=== PATIENT | female | born 1995 | race Caucasian/White ===

== ENCOUNTER 2018-04-22 13:05 | Emergency (ER) | payer OTHER ==
[2018-04-22 14:06] LABS: #Lymphocytes 1.3 thou/uL (1.20-3.40); #Monocytes 0.6 thou/uL (0.11-0.59); #Neutrophils 10.5 thou/uL (1.40-6.50); %Basophils 0.1 % (0.0-1.0); %Eosinophils 0.1 % (0.0-10.0); %Lymphocytes 10.4 % (28.0-48.0); %Monocytes 4.6 % (0.0-4.0); %Neutrophils 84.7 % (31.0-61.0); Hemoglobin 12.2 g/dL (12.0-16.0); Mean Corpuscular HGB CONC 34.3 g/dL (32.0-36.0); Mean Corpuscular Hemoglobin 31.5 pg (25.0-35.0); Mean Corpuscular Volume 91.7 fL (78.0-98.0); Mean Platelet Volume 7.1 fL (7.4-10.4); Platelet Count 216 thou/uL (130-400); RBC Distribution Width 12.3 % (11.5-14.5); Red Blood Cell (RBC) Count 3.86 mill/uL (4.00-5.20); White Blood Cell (WBC) Count 12.3 thou/uL (4.8-10.8)
[2018-04-22 14:40] LABS: ALT (SGPT) 8 U/L (8-55); AST (SGOT) 13 U/L (5-34); Albumin 3.5 g/dL (3.5-5.0); Alkaline Phosphatase 79 U/L (40-150); Anion Gap 11 mmol/L (10-20); BUN (Urea Nitrogen) 8 mg/dL (7.0-18.7); Bilirubin, Total 0.2 mg/dL (0.2-1.2); Calc. Creatinine Clearance 0 mL/min (70-130); Calcium 9.2 mg/dL (7.8-10.44); Carbon Dioxide 21 mmol/L (22-29); Chloride 106 mmol/L (98-107); Estimated GFR-MDRD Greater than 90; Globulin 3.1 g/dL (2.4-3.5); Glucose 73 mg/dL (70-105); Potassium 3.8 mmol/L (3.5-5.1); Protein, Total 6.6 g/dL (6.0-8.3); Sodium 134 mmol/L (136-145)
[2018-04-22] MEDS ORDERED: Lidocaine 2% Jelly 5 ML TUBE ONE (15:58)
[2018-04-22] MEDS ORDERED: Acetaminophen 325 MG TAB ONE (16:25)
== END 2018-04-22 16:47 | disposition home or self-care (01) ==
LOC: ERS 13:05
DX: O99.612 Diseases of the digestive system complicating pregnancy, second trimester (principal); K60.2 Anal fissure, unspecified; Z79.899 Other long term (current) drug therapy; Z3A.18 18 weeks gestation of pregnancy
CPT/HCPCS: 36415; 80053; 85025; 99283

== ENCOUNTER 2018-05-15 20:09 | Day surgery (SDC) | payer OTHER ==
[2018-05-15 20:32] VITALS: BMI 25.2
[2018-05-15 20:33] VITALS: BP 106/57; TEMP 98.5
--- NOTE | 2018-05-15 20:58 | PDOC.LDHP ---
Labor and Delivery H&P Chief complaint: other (hernia pain) HPI: 22 y/o at 22w0d presents with umbilical hernia pain. Patient sees a Dr. Hope in [place]. Umbilical hernia has been present for 9 years and is only painful during . Noticed it was "poking out more" and more painful today. Denies VB, LOF, ctx, or decreased FM. Complains of constipation that is relieved with Milk of Magnesia. ROS neg for HEENT, cv, pulm, gi, gu, neuro, psych, skin, musculoskeletal, or constitutional symptoms other than mentioned above. OB History Details: 1 prior term LTCS Current complications: none Past Medical History: None Current medications: other (Diclegis) Previous surgical history: low tranverse CS, appendectomy Allergies/Adverse Reactions: Allergies Allergy/AdvReac Type Severity Reaction Status Date / Time No Known Allergies Allergy Verified 05/15/18 20:38 Social history: none - Physical Exam Vital signs reviewed and normal: yes General: NAD, resting Lungs: nonlabored breathing Abdomen: gravid (reducible hernia superior to umbilicus. No e/o incarceration.) Extremeties: no edema FHT: category 1 (140s) - Assessment 22 y/o at 22w0d with reducible umbilical hernia. No e/o incarceration. status reassuring with normal FHTs. - Plan -: D/c home with precautions. Advised to keep all appointments. Comfort measures discussed.
== END 2018-05-15 21:05 | disposition home health service (06) ==
LOC: L&D/OP 20:09
PROVIDERS: ATTEND Obstetrics & Gynecology
DX: O99.612 Diseases of the digestive system complicating pregnancy, second trimester (principal); K42.9 Umbilical hernia without obstruction or gangrene; Z3A.22 22 weeks gestation of pregnancy; Z98.890 Other specified postprocedural states
CPT/HCPCS: 99282

== ENCOUNTER 2018-06-13 10:44 | Day surgery (SDC) | payer OTHER ==
[2018-06-13 11:37] VITALS: BMI 26.9
[2018-06-13 11:54] LABS: Bilirubin Negative (Negative); Blood, Urine Negative (Negative); Clarity CLEAR (Clear); Glucose, Urine (Dipstick) Negative (Negative); Leukocyte Negative (Negative); Nitrite Negative (Negative); Protein, Urine (Dipstick) Negative (Neg-Trace); Specific Gravity, Urine 1.023 (1.002-1.036)
[2018-06-13 12:09] LABS: #Eosinphils 0.1 thou/uL (0.0-0.7); #Lymphocytes 1.9 thou/uL (1.20-3.40); #Monocytes 0.6 thou/uL (0.11-0.59); #Neutrophils 9.6 thou/uL (1.40-6.50); %Basophils 0.2 % (0.0-1.0); %Eosinophils 0.5 % (0.0-10.0); %Lymphocytes 15.9 % (28.0-48.0); %Monocytes 4.8 % (0.0-4.0); %Neutrophils 78.7 % (31.0-61.0); Hemoglobin 10.7 g/dL (12.0-16.0); Mean Corpuscular HGB CONC 35.7 g/dL (32.0-36.0); Mean Corpuscular Hemoglobin 32.7 pg (25.0-35.0); Mean Corpuscular Volume 91.6 fL (78.0-98.0); Mean Platelet Volume 7.3 fL (7.4-10.4); Platelet Count 205 thou/uL (130-400); RBC Distribution Width 11.9 % (11.5-14.5); Red Blood Cell (RBC) Count 3.26 mill/uL (4.00-5.20); White Blood Cell (WBC) Count 12.2 thou/uL (4.8-10.8)
[2018-06-13 12:33] LABS: ALT (SGPT) 8 U/L (8-55); AST (SGOT) 12 U/L (5-34); Albumin 3.3 g/dL (3.5-5.0); Alkaline Phosphatase 89 U/L (40-150); Anion Gap 10 mmol/L (10-20); BUN (Urea Nitrogen) 9 mg/dL (7.0-18.7); Bilirubin, Total 0.2 mg/dL (0.2-1.2); Calc. Creatinine Clearance 171 mL/min (70-130); Calcium 8.6 mg/dL (7.8-10.44); Carbon Dioxide 19 mmol/L (22-29); Chloride 109 mmol/L (98-107); Estimated GFR-MDRD Greater than 90; Globulin 2.9 g/dL (2.4-3.5); Glucose 76 mg/dL (70-105); Potassium 3.7 mmol/L (3.5-5.1); Protein, Total 6.2 g/dL (6.0-8.3); Sodium 134 mmol/L (136-145)
--- NOTE | 2018-06-13 13:51 | SS ---
DATE OF EVALUATION: 06/13/2018 EVALUATING PHYSICIAN: Jb Rodriguez M.D. CHIEF COMPLAINT: Upper abdominal pain, lower back pain. HISTORY OF PRESENT ILLNESS: Ms. Kim is a 22-year-old white G2, P1-0-0-1 with an estimated date of c onfinement of 09/18/2018 who presents complaining of a 24-48 hour history of upper abdominal pain and lower back pain which she states is worse on the right than on the left. She states that she vomite d last evening x1 and she thinks there might have been blood in it. She denies fever, chills, or jenny nge in bowel or bladder habits. Her care has been in [place], [place]. She is currently t raveling with her boyfriend. PAST OBSTETRICAL HISTORY: Previous at term for what sounds like distress. PAST MEDICAL HISTORY: Unremarkable. PAST SURGICAL HISTORY: and appendectomy. MEDICATIONS: vitamins and Diclegis. ALLERGIES: No known allergies. SOCIAL HISTORY: Denies tobacco, alcohol, or drug use. FAMILY HISTORY: Unremarkable. REVIEW OF SYSTEMS: Denies fever, chills, or dysuria. PHYSICAL EXAMINATION: VITAL SIGNS: Stable. She is afebrile. GENERAL: She is well-appearing and in no distress. ABDOMEN: Shows no guarding or rebound. She has a gravid uterus and it is nontender. heart rate tracing is stable and reassuring. There are no decelerations. No uterine activity is seen. LABORATORY DATA: White count 12.2, hemoglobin and hematocrit 10.7 and 29.9, platelet count 205. Clara dianne shows a sodium of 134, potassium 3.7, creatinine 0.6, glucose 76, total bilirubin 0.2, AST 12, ALT 8, alkaline phosphatase 89. Urinalysis is yellow and clear, specific gravity of 1.023 with nega tive protein, negative glucose, negative ketones, negative blood, negative nitrites and negative bili rodarte, and negative leukocyte esterase. ASSESSMENT: 1. 26 and 1/7 week intrauterine . 2. No evidence of labor or urinary tract infection. 3. Suspect reflux. PLAN: At this time, the patient will be discharged home. I have suggested that she use Pepcid nkechi BONILLAh she can obtain over the counter and take 2 tablets at bedtime. She was also cautioned regarding spicy foods and other foods that she may not be able to tolerate. She voiced understanding of her d ischarge instructions and states that she has a visit with her provider in [place].
== END 2018-06-13 12:59 | disposition home or self-care (01) ==
LOC: L&D/OP 10:44
PROVIDERS: ATTEND Obstetrics & Gynecology
DX: O99.89 Other specified diseases and conditions complicating pregnancy, childbirth and the puerperium (principal); R10.9 Unspecified abdominal pain; M54.5 Low back pain; Z3A.26 26 weeks gestation of pregnancy
CPT/HCPCS: 36415; 80053; 81003; 85025; 99283

== ENCOUNTER 2018-07-09 06:15 | Day surgery (SDC) | payer OTHER | END 2018-07-09 08:08 | disposition home or self-care (01) | LOC: L&D/OP 06:15 | PROVIDERS: ATTEND Obstetrics & Gynecology | DX: O99.89 Other specified diseases and conditions complicating pregnancy, childbirth and the puerperium (principal); M79.1 Myalgia; M54.5 Low back pain; Z79.899 Other long term (current) drug therapy; Z3A.29 29 weeks gestation of pregnancy | CPT/HCPCS: 99282 ==

== ENCOUNTER 2018-07-29 12:44 | Inpatient (IN) | payer OTHER ==
[2018-07-29 13:22] VITALS: BMI 29.2
[2018-07-29 13:54] LABS: Bilirubin Small (Negative); Blood, Urine Negative (Negative); Clarity CLEAR (Clear); Glucose, Urine (Dipstick) Negative (Negative); Leukocyte Small (Negative); Nitrite Negative (Negative); Protein, Urine (Dipstick) 30 mg/dL (Neg-Trace); Specific Gravity, Urine 1.023 (1.002-1.036); pH, Urine 6.5 (5.0-9.0)
[2018-07-29 13:56] LABS: Bacteria/HPF None Seen HPF (None Seen); Hyaline Casts/LPF 7-10 HYALINE CAST LPF (0-3 Hyaline); Pathc Cast-AUWi Flag 1.88 (0-2.49); RBC/HPF 0-3 HPF (0-3)
[2018-07-29 13:58] LABS: Renal Epithelial None Seen HPF (0-3); Transitional Epithelial 0-3 HPF (0-3)
[2018-07-29 14:00] LABS: Hemoglobin 9.7 g/dL (12.0-16.0); Mean Corpuscular HGB CONC 33.6 g/dL (32.0-36.0); Mean Corpuscular Hemoglobin 29.9 pg (25.0-35.0); Mean Corpuscular Volume 88.8 fL (78.0-98.0); Mean Platelet Volume 7.7 fL (7.4-10.4); Platelet Count 292 thou/uL (130-400); RBC Distribution Width 12.4 % (11.5-14.5); Red Blood Cell (RBC) Count 3.24 mill/uL (4.00-5.20); White Blood Cell (WBC) Count 14.4 thou/uL (4.8-10.8)
[2018-07-29 14:17] LABS: FFN Internal QC Analyzer PASS (PASS); FFN Internal QC Cassette PASS (PASS); Fetal Fibronectin Negative (Negative)
[2018-07-29 14:39] LABS: Syphilis Antibody Nonreactive (Nonreactive); Syphilis Antibody Index 0.04 S/CO (<1.00 Non-Reactive)
[2018-07-29 14:41] LABS: HBSAB Concentration 2.87 mIU/mL; HBSAg Index 0.16 S/CO (0-0.99); HIV (1/2) Antibody/Antigen Non-Reactive (NonReactive); HIV 1/2 INDEX 0.18 S/CO (<1.00); Hep B Core Total Ab Non-Reactive (NonReactive); Hep B Core Total Index 0.36 S/CO (0-0.79); Hep B Surf AB Non-Reactive (NonReactive); Hep B Surf Ag Non-Reactive S/CO (NonReactive)
[2018-07-29] MEDS ORDERED: HYDROcodone/Acetaminophen 5/325 mg Tablet PO PRN ×2 (16:00)
[2018-07-29] MEDS ORDERED: Ondansetron ODT 4 MG TAB PO PRN (16:00)
[2018-07-29] MEDS ORDERED: Lactated Ringer's 500 ML IV SCH (16:00)
[2018-07-29] MEDS ORDERED: Zolpidem Tartrate 5 MG TAB PO PRN (16:00)
[2018-07-29] MEDS ORDERED: Ondansetron HCl/PF 4 MG/2 ML Vial IVP PRN (16:00)
[2018-07-29] MEDS ORDERED: Betamet Acet/Betamet Na Ph 30 MG/5 ML VIAL ONE (16:02)
[2018-07-29] MEDS: Betamet Acet/Betamet Na Ph 30 MG/5 ML VIAL IM SCH (16:05)
[2018-07-29] MEDS: Lactated Ringer's 1,000 ML IV SCH (16:18)
[2018-07-29 16:41] LABS: ALT (SGPT) 11 U/L (8-55); AST (SGOT) 19 U/L (5-34); Albumin 3.7 g/dL (3.5-5.0); Alkaline Phosphatase 140 U/L (40-150); Anion Gap 10 mmol/L (10-20); BUN (Urea Nitrogen) 10 mg/dL (7.0-18.7); Bilirubin, Total 0.4 mg/dL (0.2-1.2); Calc. Creatinine Clearance 163 mL/min (70-130); Calcium 9.3 mg/dL (7.8-10.44); Carbon Dioxide 25 mmol/L (22-29); Chloride 105 mmol/L (98-107); Estimated GFR-MDRD Greater than 90; Globulin 3.1 g/dL (2.4-3.5); Glucose 83 mg/dL (70-105); Protein, Total 6.8 g/dL (6.0-8.3); Sodium 136 mmol/L (136-145)
--- NOTE | 2018-07-29 18:00 | HP ---
DATE OF ADMISSION: 07/29/2018 REASON FOR ADMISSION: Thirty two weeks with lower back pain, cervical dilatation and possible preter m labor. HISTORY OF PRESENT ILLNESS: Ms. Kim is a 22-year-old 2, para 1 at 32 weeks by stated DILCIA of 09/21. She has had limited antepartum care with [facility] in [place]. She has presented to the Lab or and Delivery here 4 times during her with various complaints. She is complaining of low er back pain. Urinalysis revealed some bilirubin and some concentration. Otherwise, initial lab wor k was unremarkable. Of note, the patient on exam, however, had a cervix that was a good 1 cm and 75% effaced, cephalic with adequate fluid. Considering the patient's unstable psychosocial situat ion as evidenced by her lack of compliance with OB visits as well as some apparent conflict between h er and her significant other, decision was made to admit the patient for IV fluids as well as antenat al corticosteroids. [facility] HISTORY: x1 in [place], [place]. The patient was told her pelvis was misaligned and to o small and she need a repeat C-sections. PAST MEDICAL HISTORY: None. PAST SURGICAL HISTORY: and appendectomy. MEDICATIONS: vitamins. ALLERGIES: Denies. SOCIAL HISTORY: Denies tobacco, alcohol or IV drug use. FAMILY HISTORY: Noncontributory. REVIEW OF SYSTEMS: Noncontributory. PHYSICAL EXAMINATION: GENERAL: White female. VITAL SIGNS: Today, blood pressure is 118/72, pulse 85, respirations 18, temperature 98.6. HEENT: Within normal limits. LUNGS: Clear to auscultation bilaterally. HEART: Regular rhythm. ABDOMEN: Soft and nontender. Fundal height of 31 cm. FHTs 130s to 140s. No palpable contractions noted. PELVIC: Vulva without lesions. Vagina without discharge. Cervical exam is noted in the HPI. EXTREMITIES: Without clubbing, cyanosis or edema. HEART RATE TRACING: heart rate tracing is category 1 with no evidence of anything other than maybe some mild uterine irritability. No regular contractions. LABORATORY DATA: White count of 14.4, hematocrit of 29%. Urinalysis is somewhat concentrated with 3 0 protein, 15 ketones, small bilirubin and small leukocyte esterase. Micro is really unremarkable. The patient is hepatitis B immunized. fibronectin was negative. IMPRESSION: Possible early labor. PLAN: Admission, IV fluids, further laboratory evaluation, rate of growth ultrasound, tyler icosteroids x2 and we will obtain the patient's antepartum record from her other [facility]. May need to go ahead and schedule the patient for repeat section at 39 weeks with OB Hospitalist group as the patient does not have an antepartum provider here in town.
[2018-07-29 18:03] LABS: Creatinine, Urine 289.28 mg/dL (47-110)
[2018-07-29 19:22] LABS: Amphetamine Not Detected (NotDetected); Barbiturates Screen Not Detected (NotDetected); Benzodiazepine Screen Not Detected (NotDetected); Cocaine Metabolite Screen Not Detected (NotDetected); Medtox Control Line Valid? VALID (VALID); Medtox Reader # READER 1; Methadone Not Detected (NotDetected); Methamphetamine Not Detected (NotDetected); Opiate Screen Not Detected (NotDetected); Oxycodone Screen Not Detected (NotDetected); Phencyclidine (PCP) Not Detected (NotDetected); THC/Cannabinoid Screen Not Detected (NotDetected); Tricyclic Screen Not Detected (NotDetected)
--- NOTE | 2018-07-29 20:01 | ULT ---
OB ULTRASOUND: INDICATIONS: Deficient care. Evaluation of viability. FINDINGS: There is a live intrauterine gestation, which, by sonographic imaging, corresponds to a 92-jzyg-8-day gestation. Stated clinical dates are 33 weeks and 5 days. Estimated weight is 1966 g, placin g the fetus at the 12th percentile by Hadlock criteria. Biparietal diameter corresponds to 34 weeks 3 days, head circumference 34 weeks 4 days, abdominal circumference 31 weeks 2 days, and femoral angeli th 33 weeks 0 days. There is a borderline size to the imaged lateral ventricular region, approximately 1.2 cm, nonspecifi c. Otherwise, documented cardiac activity is confirmed at a range of 117 to 132 beats per jose te. The imaged anatomy, including the calvarium, the spine, the four-chambered heart, the celia anastacia bubble, the kidneys, and the cord insertion site reveal no significant abnormalities. The amniot ic fluid volume is subjectively normal. The fetus is demonstrated in a cephalic lie, and the placenta is located posterior and fundal in loca tion. No sonographic evidence of placenta previa. MALICK is measured at 11.7 cm. Documented cervical length measures between 2.3 and 3.5 cm, which may relate to contraction during th e exam. IMPRESSION: 1. Viable intrauterine gestation, as above. 2. Mild prominence of the lateral ventricle, as discussed above. This may be further assessed with follow-up post delivery imaging, as clinically mandated. 3. Altering cervical length during the exam, measuring between 2.3 and 3.5 cm. Correlate clinically . As necessary, dedicated imaging followup may be obtained. POS: FÉLIX
[2018-07-29] MEDS: Docusate 100 MG CAP PO SCH (21:45)
[2018-07-30] MEDS: Lactated Ringer's 1,000 ML IV SCH ×2 (04:05→12:14)
[2018-07-30] MEDS: Mag-Al 1200 mg/1200 mg/30 ML UDCUP PO PRN ×2 (06:06→12:13)
--- NOTE | 2018-07-30 07:28 | PRG ---
DATE OF SERVICE: 07/30/2018 TIME OF SERVICE: 0655 The patient is resting comfortably without complaint. She denies contractions, rupture of membranes, leakage of fluid. Early in the evening, she had noticed some bloody mucus consistent with what she thought was her mucus plug on wiping in the bathroom. This is consistent with a cervical exam by mys alysef in Labor and Delivery. OBJECTIVE: VITAL SIGNS: Stable, afebrile. FHTs are 130s to 140s. ABDOMEN: Soft and nontender, without rebound or guarding, no CVA tenderness noted. PELVIC: Deferred. IMPRESSION: uterine irritability with cervical change at 32-33 weeks gestation. PLAN: Continue hospital observation. Second betamethasone dose due at 1600 p.m. today. Plan discharge home after that. Of note, ultrasound was consistent with stated gestational age. Mil d lateral ventricle prominence was noted on one side which probably deserves evaluation post-delivery , but it was no impact on this .
[2018-07-30] MEDS: Docusate 100 MG CAP PO SCH (08:40)
[2018-07-30 11:09] VITALS: BP 94/50; TEMP 98.1
[2018-07-30] MEDS: Betamet Acet/Betamet Na Ph 30 MG/5 ML VIAL IM SCH (16:06)
--- NOTE | 2018-07-30 17:21 | DIS ---
DATE OF ADMISSION: 07/29/2018 DATE OF DISCHARGE: 07/30/2018 REASON FOR ADMISSION: Threatened labor at 32 weeks. PRINCIPAL PROCEDURES: 1. monitoring. 2. Steroid (Celestone) administration. HOSPITAL COURSE: In brief, this is a patient who was admitted by Dr. Wild Byrd on 07/29/2018 as a p atient who has care at an outside facility who was seen at [facility] for threatened labor. She is a 22-year-old G2, P1 at 32 weeks' by EDC of 09/21/2018. The patient has no past medi trisha history, but she does have a prior history with an appendectomy. The patient was found to have a cervical examination that was 1 cm dilation, 75% effaced, cephalic presentation. FFN was collected and was negative. She was admitted for Celestone administration in case she delivered pret erm. She received Celestone and the second dose of Celestone was given on 07/30/2018 at roughly [address] . The plan per Dr. Byrd was to keep her for 23-hour observation and possible discharge on 07/30/20 18 after her second Celestone. I evaluated the patient at [id number] at bedside. There is no evidenc e of active labor. The patient states that she wishes to transfer care to a provider affiliated with [facility]. I have asked the nurse to give them information regarding surrounding [facility] clinics. Vital signs were stable and she was afebrile.
== END 2018-07-30 17:30 | disposition home or self-care (01) | DRG 833 ==
LOC: L&D/OP 12:44 → L&D 17:29 → 3SW 18:22
PROVIDERS: ADMIT Obstetrics & Gynecology; ATTEND Obstetrics & Gynecology
DX: O47.03 False labor before 37 completed weeks of gestation, third trimester (principal); Z3A.32 32 weeks gestation of pregnancy; O34.219 Maternal care for unspecified type scar from previous cesarean delivery
CPT/HCPCS: 36415; 59025; 76805; 80053; 80306; 81001; 82570; 82731; 84156; 85027; 86704; 86706; 86762; 86780; 86850; 86900; 86901; 87340; 87389; 99285; J0702; J2405

== ENCOUNTER 2018-08-08 19:42 | Day surgery (SDC) | payer OTHER ==
--- NOTE | 2018-08-08 20:48 | PDOC.LDHP ---
Labor and Delivery H&P Chief complaint: other (hip pain, low nack pain) HPI: Patient has full handwritten H&P in physical record Here for hip pain and low back pain HX pror admission for PTL observation [facility]NC in [place], [place] EGA 34 weeks 1 day HPI: 23 yo at 34 weeks 1 day, CS x 1 in 2016, here for low back pain and hip pain. No LOF, nor CTX, no VB. Good FM. Review of Systems: Complete ROS completed and as per HPI Current gestational age (weeks): 34 (1 day) Dating criteria: last menstrual period Grav: 2 Para: 3 Current complications: none Abnormal US findings: No Current medications: pre-horacio vitamins Previous surgical history: cholecystectomy, other (HX CS 2016) Allergies/Adverse Reactions: Allergies Allergy/AdvReac Type Severity Reaction Status Date / Time No Known Allergies Allergy Verified 06/13/18 11:29 Social history: none - Physical Exam Vital signs reviewed and normal: yes (100/70s) General: NAD Heart: RRR Lungs: CTAB Abdomen: gravid Extremeties: no edema FHT: variable decelerations (good variabnility with accels, 2 variables noted ( isolated), but no CTX on toco) Marks contractions every: no ctx - Assessment : 34 weeks, prior CS x 1, nonspecific discomforts of preg...was 1 cm in past. - Plan Plan: observation in L&D (Order BPP for survellance; advised to get CS record; monitors for now; nurse to check cervix (desires female examiner).)
--- NOTE | 2018-08-08 20:59 | PDOC.EVN ---
Event Note - Event Note Event Note: RX exam still 1cm as before. (per RN)
--- NOTE | 2018-08-08 21:32 | PDOC.EVN ---
Event Note - Event Note Event Note: BPP will not be done for a few hours as Progression is going to So CS. As I reviewed the FHTs since first arrival, strip is reactive- mod variability without recurrent decels. OK to cancel BPP Has [facility] follow up next week.
== END 2018-08-08 21:47 | disposition home health service, planned readmission (86) ==
LOC: L&D/OP 19:42 → EEVIPCON 19:42 → L&D/OP 21:47
PROVIDERS: ATTEND Obstetrics & Gynecology
DX: O99.89 Other specified diseases and conditions complicating pregnancy, childbirth and the puerperium (principal); M25.559 Pain in unspecified hip; M54.5 Low back pain; Z3A.34 34 weeks gestation of pregnancy
CPT/HCPCS: 99282

== ENCOUNTER 2018-08-19 11:01 | Day surgery (SDC) | payer OTHER ==
[2018-08-19 11:32] VITALS: BMI 28.6
--- NOTE | 2018-08-19 12:14 | PRG ---
DATE OF SERVICE: 08/19/2018 PRESENTING COMPLAINT: Contractions at 35 weeks gestation. HISTORY OF PRESENT ILLNESS: Ms. Hanna Kim is well-known to this Labor and Delivery unit. She is a G 2, P1, 22 years old, with an EDC of 09/21/2018. She has had scattered care in [facility] the ED of multiple hospitals as well as at [facility] with Dr. Shin. She presents today complaining of contractions. She reports an active fetus. She denies vaginal bleedin g. She has a scheduled repeat scheduled in August. FUR CLIPPER HISTORY: for failure to progress, long second stage of labor. Blood type O positiv e, antibody negative, Pap negative, rubella immune, VDRL nonreactive, hepatitis B, GC chlamydia negat sindy. PAST MEDICAL HISTORY: None. PAST SURGICAL HISTORY: C-sections and appendectomy. MEDICATIONS: vitamins. SOCIAL HISTORY: Denies tobacco, alcohol, IV drug abuse. ALLERGIES: Denies. FAMILY HISTORY/REVIEW OF SYSTEMS: Noncontributory. PHYSICAL EXAMINATION: GENERAL: White female. VITAL SIGNS: Blood pressure 132/57, pulse 107, temperature 98.6, respirations 18. HEENT: Within normal limits. LUNGS: Clear to auscultation bilaterally. HEART: Regular rhythm. BREASTS: No masses bilaterally. ABDOMEN: Soft, nontender, gravid 35 cm. FHTs 140s. PELVIC: Vulva without lesions. Vagina without discharge. Cervix by nurse exam 0.5 cm long, and hig h. EXTREMITIES: Without clubbing, cyanosis or edema. heart rate tracing was carried out for approximately 20 minutes. There was Category 1 tracing, positive accelerations, no decels, no contractions noted. IMPRESSION: Thirty-five weeks with discomforts of . No evidence of active labor. PLAN: Discharge home, keep scheduled followup with Dr. Shin.
== END 2018-08-19 11:54 | disposition home or self-care (01) ==
LOC: L&D/OP 11:01
PROVIDERS: ATTEND Obstetrics & Gynecology
DX: O47.03 False labor before 37 completed weeks of gestation, third trimester (principal); Z3A.35 35 weeks gestation of pregnancy; Z79.899 Other long term (current) drug therapy
CPT/HCPCS: 99282

== ENCOUNTER 2018-09-11 03:55 | Inpatient (IN) | payer OTHER ==
--- NOTE | 2018-09-10 18:07 | PDOC.LDHP ---
Labor and Delivery H&P Chief complaint: scheduled section HPI: 23 yo @ 39w0d by 8w5d sono who presented to L&D for c/o pelvic pain and has RCS scheduled today. Antepartum course complicated by h/o CS x1, otherwise benign. Pt declines TOLAC. Current gestational age (weeks): 39 Due date: 09/18/18 Dating criteria: first trimester ultrasound Grav: 2 Para: 1 OB History Details: CS 2016 Current complications: none Abnormal US findings: No Past Medical History: Anemia Current medications: pre- vitamins, iron Previous surgical history: low tranverse CS Allergies/Adverse Reactions: Allergies Allergy/AdvReac Type Severity Reaction Status Date / Time No Known Allergies Allergy Verified 09/11/18 04:14 Social history: none - Physical Exam Vital signs reviewed and normal: yes General: NAD, resting Heart: RRR Lungs: nonlabored breathing Abdomen: gravid Extremeties: no edema FHT: category 1 (120s, mod vik, +accels, no decels) [place] contractions every: irregular ctx - Vaginal Exam cm dilated: 3 Effacement: 75% Station: -1 - OB Labs Blood type: O RH: positive Antibody Screen: negative HIV: negative HEPSAg: negative 1 hour GCT: negative GBS: positive Urine drug screen: negative Rubella: immune Additional Labs: AFP tetra negative - Assessment 39w0d IUP H/O LTCS x1, Desires RCS. Anemia - Plan Plan: to OR for section, informed consent obtained, anesthesia consult for pain management -: Offered TOLAC vs RCS, all R/B/A/I reviewed with pt. She desires to proceed with RCS.
[2018-09-11 04:25] VITALS: BMI 28.9
[2018-09-11] MEDS ORDERED: Butorphanol Tartrate 1 MG/ML VIAL SLOW IVP PRN (04:42)
[2018-09-11] MEDS ORDERED: Ondansetron PF 4 MG/2 ML Vial IVP PRN ×2 (04:42→13:14)
[2018-09-11] MEDS ORDERED: Lactated Ringer's 1,000 ML IV SCH (04:45)
[2018-09-11] MEDS ORDERED: CEFAZOLIN/Water 2 GM/20 ML SYRINGE SLOW IVP SCH (04:45)
[2018-09-11] MEDS ORDERED: Bicitra 30 ML UDCUP PO SCH (04:45)
[2018-09-11] MEDS ORDERED: CEFAZOLIN 2 GM/50 ML-DEXTROSE 2 GM in Premix Bag 1 BAG IVPB SCH (05:00)
[2018-09-11] MEDS: Lactated Ringer's 1,000 ML IV SCH ×3 (05:05→21:05)
[2018-09-11 05:30] LABS: Hemoglobin 10.4 g/dL (12.0-16.0); Mean Corpuscular HGB CONC 32.1 g/dL (32.0-36.0); Mean Corpuscular Hemoglobin 27.4 pg (27.0-31.0); Mean Corpuscular Volume 85.5 fL (78.0-98.0); Mean Platelet Volume 8.3 fL (7.4-10.4); Platelet Count 370 thou/uL (130-400); Red Blood Cell (RBC) Count 3.78 mill/uL (4.20-5.40); White Blood Cell (WBC) Count 13.3 thou/uL (4.8-10.8)
[2018-09-11 06:05] LABS: Hep B Surf Ag Non-Reactive S/CO (NonReactive); Syphilis Antibody Nonreactive (Nonreactive); Syphilis Antibody Index 0.04 S/CO (<1.00 Non-Reactive)
[2018-09-11] MEDS ORDERED: ePHEDrine/0.9% NaCl/PF SYRINGE 50 mg/10 ml ONE ×2 (11:46→17:31)
[2018-09-11] MEDS ORDERED: Bupivacaine 0.75% W/DEXTROSE 8.25% 2 ML AMP ONE (11:46)
[2018-09-11] MEDS ORDERED: Metoclopramide HCl 10 MG/2 ML VIAL ONE ×2 (11:46→17:31)
[2018-09-11] MEDS ORDERED: Ondansetron PF 4 MG/2 ML Vial ONE ×2 (11:46→17:31)
[2018-09-11] MEDS ORDERED: Oxytocin 10 UNITS/ML VIAL ONE ×3 (11:46→12:49)
[2018-09-11] MEDS ORDERED: Lidocaine 1% PF 5 ML VIAL ONE (11:53)
[2018-09-11] MEDS ORDERED: Morphine PF 1 MG/ML SYR ONE (11:54)
[2018-09-11] MEDS ORDERED: Midazolam HCl 2 mg/2 ml Vial ONE (12:31)
[2018-09-11] MEDS ORDERED: Fentanyl 250 MCG/5 ML VIAL ONE (12:31)
--- NOTE | 2018-09-11 13:09 | PDOC.OPDEL ---
OB Operative/Delivery Note Delivery Dr/Surgeon: Sia Shin DO Assist: Jg Byrd MD Pre-Delivery Diagnosis: scheduled section Procedure/Post Delivery Dx: repeat low transverse CS (Vacuum assisted RLTCS) Weeks gestation: 39 Anesthesia: spinal - Findings A Sex: female - 1 min: 8 - 5 min: 9 - Additional Findings/Plan Placenta delivered: spontaneous findings: low transverse hysterotomy without extension, normal uterus, normal tubes, normal ovaries Estimated blood loss: QBL 388 cc Compilations/Other Findings: Infant in cephalic presentation Vacuum assisted delivery due to inability to deliver head unassisted from soft tissue constriction and patient discomfort with increased abdominal pressure during delivery Clear AF Normal appearing placenta Post delivery plan: routine recovery
[2018-09-11] MEDS ORDERED: Promethazine HCl 25 MG/ML VIAL IM PRN ×2 (13:14→15:39)
[2018-09-11] MEDS ORDERED: Promethazine HCl 25 MG SUPP PR PRN (13:14)
[2018-09-11] MEDS ORDERED: Naloxone HCl 0.4 mg/ml Vial IV PRN (13:14)
[2018-09-11] MEDS ORDERED: Eucerin (Mineral Oil/Petrolatum,White) 30 gm Jar TOP PRN (13:14)
[2018-09-11] MEDS ORDERED: Naloxone HCl 0.4 mg/ml Vial IVP PRN ×2 (13:14)
[2018-09-11] MEDS ORDERED: Communication Order-Pharmacy FS SCH (13:15)
[2018-09-11] MEDS ORDERED: Ketorolac Tromethamine 30 MG/ML VIAL ONE (13:30)
[2018-09-11] MEDS: Ketorolac Tromethamine 30 MG/ML VIAL IVP PRN ×2 (13:32→19:31)
[2018-09-11] MEDS ORDERED: Morphine 4 MG/ML VIAL ONE (15:10)
[2018-09-11] MEDS ORDERED: Morphine 4 MG/ML VIAL SLOW IVP PRN (15:22)
[2018-09-11] MEDS ORDERED: Methylergonovine 0.2 MG/ML VIAL IM PRN (15:39)
[2018-09-11] MEDS ORDERED: diphenhydrAMINE 25 MG CAP PO PRN (15:39)
[2018-09-11] MEDS ORDERED: Simethicone Chewable 80 MG TAB PO PRN (15:39)
[2018-09-11] MEDS ORDERED: Misoprostol 200 MCG TAB PR PRN (15:39)
[2018-09-11] MEDS ORDERED: Bisacodyl 10 MG SUPP PR PRN (15:39)
[2018-09-11] MEDS ORDERED: NS / Oxytocin 40 units/1000ml 1,000 ML IV SCH (15:39)
[2018-09-11] MEDS ORDERED: Acetaminophen 325 MG TAB PO PRN (15:39)
--- NOTE | 2018-09-11 16:28 | OP ---
PREOPERATIVE DIAGNOSES: 1. A 39-week 0 day intrauterine . 2. History of a low transverse delivery x1, declines trial of labor. 3. Anemia due to chronic iron deficiency. POSTOPERATIVE DIAGNOSES: 1. A 39-week 0 day intrauterine . 2. History of a low transverse delivery x1, declines trial of labor. 3. Anemia due to chronic iron deficiency. PROCEDURES: Repeat low transverse delivery with a vacuum assistance of the delivery of the head. SURGEON: Sia Shin D.O. AUTO REPAIR SHOP MANAGER: Jg Byrd M.D. COMPLICATIONS: None. ANESTHESIA: Spinal. QBL: 388 mL. IV FLUIDS: 1000 mL. URINE OUTPUT: 500 mL of clear urine. FINDINGS: Thin scar tissue from the low transverse uterine segment to the dome of the bladder. A viable female infant, Apgars 8 and 9 in cephalic presentation , clear amniotic fluid. Normal appearing placenta. Normal appearing uterus, fallopian tubes and ovaries. There was a slight extension into the uterine vasculature on the left aspect of the uterus, which was quickly controlled with compression and suture. INDICATIONS FOR THE PROCEDURE: Ms. Hanna Kim is a 23-year-old G2, P1 at 39 weeks and 0 days who presented this morning with complaints of some contractions. The patient was already scheduled for her repeat delivery today, so she was kept for observation with her planned . The patient had a previous low transverse delivery x1. She was counseled on options of repeat delivery versus trial of labor and elected to have a repeat delivery. She also had a chronic iron deficiency anemia. Otherwise, her antepartum course has been benign. PROCEDURE IN DETAIL: The patient was brought to the operating room. Spinal anesthesia was placed. She was placed in supine position with a leftward tilt. She was prepped and draped in the sterile fashion. An official timeout was performed. Ancef was given for surgical prophylaxis. Anesthesia was evaluated and proven to be adequate. A Pfannenstiel skin incision was made using the scalpel through the previous scar tissue. This was carried down to the underlying fascia layer. The fascia was then incised in the midline and extended bilaterally using Fitch scissors. The superior aspect of the fascial incision was grasped using Susan clamps, tented upward and dissected free from the underlying rectus abdominis muscles. The same was performed to the inferior aspect of the fascial incision. The peritoneum was then entered in bluntly and this incision was extended using both sharp and blunt dissection. The Jaden O retractor was then placed in the abdomen. The thin adhesions from the dome of the bladder to the lower uterine segment were transected and the bladder flap was created. A low transverse hysterotomy was made using the scalpel. This was extended using blunt dissection. Amniotic membranes were ruptured and clear amniotic fluid. The 's head was attempted to be delivered with pressure and delivery with a surgeon's hand; however, the patient was feeling increased pain during this process and we were unable to deliver the head with additional pressure; therefore Mitycup vacuum was applied to the head 2 cm anterior to posterior fontanelle and suctioned activated. With 1 pull, the head was delivered. The vacuum was disengaged. The remainder of the fetus was delivered atraumatically. Infant's cord was clamped and cut. The infant was handed to the waiting Neonatology team. Cord sample and cord blood were obtained. The placenta was delivered spontaneously intact. The uterus was cleared of all clot and debris. Hysterotomy was closed in a running locking fashion using 0 Monocryl. There was an area of slight extension on the left aspect which was quickly controlled with compression and suture ligation. The hysterotomy was hemostatic after closure and the pelvis was irrigated and cleared of all clot and debris. The ovaries and fallopian tubes were evaluated and normal in appearance. The Jaden O retractor was removed from the abdomen. The sponges were also removed from the abdomen and the sponge count was correct. The peritoneum was closed in a running fashion using a 3-0 chromic. The rectus abdominis muscles were evaluated and hemostatic. The fascia was closed in a running fashion using 0 PDS. The subcutaneous layer was irrigated and hemostatic. The subcutaneous layer was closed using 3-0 Vicryl. The skin was closed using 3-0 Monocryl and Dermabond. The patient tolerated the procedure well. There were no complications. All counts were correct x3. MTDD
[2018-09-11] MEDS: Ferrous Sulfate 325 MG TAB PO SCH (16:43)
[2018-09-11] MEDS: diphenhydrAMINE 50 MG/ML VIAL IVP PRN ×2 (19:38→23:42)
[2018-09-11] MEDS: Docusate Calcium (SURFAK) 240 MG CAP PO SCH (20:51)
[2018-09-12] MEDS ORDERED: HYDROcodone/Acetaminophen 5/325 mg Tablet PO PRN (01:15)
[2018-09-12] MEDS: Ketorolac Tromethamine 30 MG/ML VIAL IVP PRN (01:35)
[2018-09-12] MEDS: Lactated Ringer's 1,000 ML IV SCH ×3 (05:13→21:40)
[2018-09-12 06:06] LABS: Hemoglobin 7.9 g/dL (12.0-16.0); Mean Corpuscular HGB CONC 31.7 g/dL (32.0-36.0); Mean Corpuscular Hemoglobin 27.4 pg (27.0-31.0); Mean Corpuscular Volume 86.4 fL (78.0-98.0); Mean Platelet Volume 8.4 fL (7.4-10.4); Platelet Count 294 thou/uL (130-400); Red Blood Cell (RBC) Count 2.89 mill/uL (4.20-5.40); White Blood Cell (WBC) Count 13.2 thou/uL (4.8-10.8)
[2018-09-12] MEDS: Docusate Calcium (SURFAK) 240 MG CAP PO SCH ×2 (09:20→21:40)
[2018-09-12] MEDS: Prenatal Vitamin 1 TAB PO SCH (09:20)
[2018-09-12] MEDS: Ferrous Sulfate 325 MG TAB PO SCH ×3 (09:21→16:52)
[2018-09-12] MEDS: HYDROcodone/Acetaminophen 5/325 mg Tablet PO PRN ×4 (09:24→23:47)
[2018-09-12] MEDS: Ibuprofen 800 MG TAB PO SCH ×2 (13:31→21:40)
[2018-09-12 14:30] LABS: #Basophils 0.1 thou/uL (0.0-0.2); #Eosinphils 0.1 thou/uL (0.0-0.7); #Lymphocytes 2.5 thou/uL (1.20-3.40); %Basophils 0.5 % (0.0-1.0); %Eosinophils 0.8 % (0.0-10.0); %Lymphocytes 15.7 % (21.0-51.0); %Monocytes 6.4 % (0.0-10.0); %Neutrophils 76.6 % (42.0-75.0); Hemoglobin 8.6 g/dL (12.0-16.0); Mean Corpuscular Hemoglobin 28.1 pg (27.0-31.0); Mean Corpuscular Volume 85.3 fL (78.0-98.0); Platelet Count 361 thou/uL (130-400); RBC Distribution Width 14.2 % (11.5-14.5); Red Blood Cell (RBC) Count 3.05 mill/uL (4.20-5.40); White Blood Cell (WBC) Count 15.7 thou/uL (4.8-10.8)
--- NOTE | 2018-09-12 14:53 | PDOC.PP ---
Post Progress Note Post Day #: 1 Subjective: No concerns. Doing well. Formula feeding. Mild pain. Moderate lochia. PO intake tolerated: yes Flatus: yes Ambulation: yes Vital Signs (12 hours) Temp Pulse Resp BP Pulse Ox 09/12/18 11:53 98.0 F 99 20 104/56 L 09/12/18 08:15 99 09/12/18 08:00 98.3 F 80 16 99/52 L 99 09/12/18 03:49 98.2 F 84 18 98/50 L 98 Weight Weight 174 lb - Physical Examination General: NAD Cardiovascular: RRR Respiratory: non-labored breathing Abdominal: no distention, appropriately TTP Fundus firm & at: below umbilicus Extremities: negative homans (B) Skin: CS incision dry & intact Neurological: no gross focal deficits Psychiatric: A&Ox3, normal affect Result Diagrams: 09/12/18 14:24 Additional Labs: Post Labs Blood Type O POSITIVE 09/11/18 05:08 Hep Bs Antigen Non-Reactive S/CO (NonReactive) 09/11/18 05:08 (1) delivery delivered Code(s): O82 - ENCOUNTER FOR DELIVERY WITHOUT INDICATION Status: Acute (2) Anemia Code(s): D64.9 - ANEMIA, UNSPECIFIED Status: Acute Qualifiers: Other causes of anemia: acute posthemorrhagic - Assessment/Plan PPD 1 VSSAF Anemia chronic with acute due to EBL. Continue Iron. H/H stable and exam as expected post op. Continue post op care. Possible d/c home tomorrow.
[2018-09-13] MEDS: Lactated Ringer's 1,000 ML IV SCH (04:34)
[2018-09-13] MEDS: HYDROcodone/Acetaminophen 5/325 mg Tablet PO PRN ×2 (05:08→09:09)
[2018-09-13] MEDS: Ibuprofen 800 MG TAB PO SCH (05:59)
[2018-09-13] MEDS ORDERED: Calcium Carbonate 500 MG ChewTAB PO PRN (08:07)
--- NOTE | 2018-09-13 08:56 | PDOC.PP ---
Post Progress Note Post Day #: 2 Subjective: Doing well. Pain controlled. Voiding, ambulating, tolerating po and passing flatus. Bottle feeding. Minimal lochia. PO intake tolerated: yes Flatus: yes Ambulation: yes Vital Signs (12 hours) Temp Pulse Resp BP Pulse Ox 09/13/18 08:00 98.4 F 73 20 108/59 L 98 09/12/18 23:53 97.8 F 72 18 99/54 L 100 Weight Weight 174 lb - Physical Examination General: NAD Cardiovascular: RRR Respiratory: non-labored breathing Abdominal: no distention, appropriately TTP Fundus firm & at: below umbilicus Extremities: negative homans (B) Skin: CS incision dry & intact, no rash Neurological: no gross focal deficits Psychiatric: A&Ox3, normal affect Result Diagrams: 09/12/18 14:24 Additional Labs: Post Labs Blood Type O POSITIVE 09/11/18 05:08 Hep Bs Antigen Non-Reactive S/CO (NonReactive) 09/11/18 05:08 (1) delivery delivered Code(s): O82 - ENCOUNTER FOR DELIVERY WITHOUT INDICATION Status: Acute (2) Anemia Code(s): D64.9 - ANEMIA, UNSPECIFIED Status: Acute Qualifiers: Other causes of anemia: acute posthemorrhagic - Assessment/Plan PPD 2 VSSAF D/C home today with .
[2018-09-13] MEDS: Docusate Calcium (SURFAK) 240 MG CAP PO SCH (09:08)
[2018-09-13] MEDS: Prenatal Vitamin 1 TAB PO SCH (09:09)
[2018-09-13] MEDS: Ferrous Sulfate 325 MG TAB PO SCH ×2 (09:09→12:06)
[2018-09-13 12:09] VITALS: BP 110/62; TEMP 97.7
== END 2018-09-13 12:45 | disposition home or self-care (01) | DRG 787 ==
LOC: EEVIPCON 03:55 → L&D/OP 03:55 → L&D 04:58 → 3SW 15:34
PROVIDERS: ADMIT Obstetrics & Gynecology; ATTEND Obstetrics & Gynecology
PROC: 10D00Z1 Extraction of Products of Conception, Low, Open Approach (ICD-10-PCS; principal; 2018-09-11)
PROC: 4A0HXCZ Measurement of Products of Conception, Cardiac Rate, External Approach (ICD-10-PCS; 2018-09-11)
DX: O34.211 Maternal care for low transverse scar from previous cesarean delivery (principal); D62 Acute posthemorrhagic anemia; O99.02 Anemia complicating childbirth; D53.9 Nutritional anemia, unspecified; Z3A.39 39 weeks gestation of pregnancy; Z37.0 Single live birth
CPT/HCPCS: 36415; 51702; 85027; 86780; 86850; 86900; 86901; 87340; 99285; J0595; J1200; J1885; J2001; J2250; J2270; J2274; J2405; J2590; J2765; J3010; J3490

== ENCOUNTER 2018-10-23 13:07 | Outpatient (CLI) | payer OTHER ==
[2018-10-23 14:46] LABS: BHCG - Serum Negative (NEGATIVE); Pregs Control Background? CLEAR/WHITE (CLR/WHITE); Pregs Control Bar Appear? YES (CONTROL BAR)
== END 2018-10-23 13:08 | disposition home or self-care (01) ==
LOC: LABBT 13:07
PROVIDERS: ATTEND Surgery
DX: Z01.812 Encounter for preprocedural laboratory examination (principal); K42.9 Umbilical hernia without obstruction or gangrene
CPT/HCPCS: 84703

== ENCOUNTER 2019-07-21 12:26 | Day surgery (SDC) | payer OTHER, SELFPAY ==
[2019-07-21 12:50] VITALS: BMI 27.3
[2019-07-21] MEDS ORDERED: hydrALAZINE 20 MG/ML VIAL SLOW IVP PRN (13:41)
--- NOTE | 2019-07-21 14:13 | PRG ---
DATE OF SERVICE: 07/21/2019 TIME OF SERVICE: 1340 hours. PRESENTING COMPLAINT: 1. Lower abdominal pressure at 35 weeks gestation. 2. Possible boil on buttock. 3. Slight vaginal discharge. OB HISTORY: The patient is a 23-year-old 3, para 2, with the EDC of 08/23, scheduled for repeat delivery. She reports that she has had several weeks of increasing lower abdominal pressure without contractions in active fetus. She also states her told her she might have a small boil on her crack between her buttocks, and she has had a slight increase in discharge. She denies rupture of membranes, vaginal bleeding, fever, chills, nausea, or vomiting. 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 Blood type O positive, antibody negative. PAST MEDICAL HISTORY: Denies. PAST SURGICAL HISTORY: . ALLERGIES: DENIES. MEDICATIONS: vitamins. SOCIAL HISTORY: Denies tobacco, alcohol, or IV drug use. FAMILY HISTORY: Noncontributory REVIEW OF SYSTEMS: Noncontributory. PHYSICAL EXAMINATION: GENERAL: White female in no acute distress. VITAL SIGNS: Temperature 98.4, respirations 18, blood pressure 118/72. HEENT: Within normal limits. LUNGS: Clear to auscultation bilaterally. HEART: Regular rhythm. ABDOMEN: Soft and nontender. : Fundal height 35. FHTs 140s. Vulva without lesions. Vagina has normal appearing discharge of . She has a small folliculitis on her buttock that is not draining and is about 4 to 5 mm in greatest diameter. Cervix is closed, long, and high. heart rate tracing is category I with no contractions and baseline of 140s to 150s. Positive accelerations, no decelerations. IMPRESSION: 1. Discomforts of . 2. Superficial folliculitis. PLAN: 1. I do not recommend p.o. antibiotics for the small amount of folliculitis. The patient was instructed to keep it clean. If it begins draining spontaneously, apply antibiotic ointment. 2. Keep scheduled followup with Dr. Shin. Job ID: [id number]
== END 2019-07-21 13:51 | disposition home health service (06) ==
LOC: L&D/OP 12:26
PROVIDERS: ATTEND Obstetrics & Gynecology
DX: O99.89 Other specified diseases and conditions complicating pregnancy, childbirth and the puerperium (principal); R10.30 Lower abdominal pain, unspecified; N89.8 Other specified noninflammatory disorders of vagina; O99.713 Diseases of the skin and subcutaneous tissue complicating pregnancy, third trimester; L73.9 Follicular disorder, unspecified; Z3A.35 35 weeks gestation of pregnancy

== ENCOUNTER 2019-08-03 17:24 | Day surgery (SDC) | payer OTHER ==
[2019-08-03 17:53] VITALS: BP 112/59; TEMP 98.7
[2019-08-03 17:54] VITALS: BMI 27.4
[2019-08-03] MEDS ORDERED: Promethazine HCl 25 MG/ML VIAL IM PRN (18:35)
[2019-08-03] MEDS ORDERED: hydrALAZINE 20 MG/ML VIAL SLOW IVP PRN (18:35)
[2019-08-03] MEDS ORDERED: Butorphanol Tartrate 1 MG/ML VIAL IM SCH (18:45)
[2019-08-04] MEDS ORDERED: FLU VACC QS2019-20(6MOS UP)/PF 60 MCG/0.5 ML SYRINGE IM ONE (09:00)
== END 2019-08-03 19:39 | disposition home or self-care (01) ==
LOC: L&D/OP 17:24
PROVIDERS: ATTEND Obstetrics & Gynecology
DX: O99.89 Other specified diseases and conditions complicating pregnancy, childbirth and the puerperium (principal); M54.9 Dorsalgia, unspecified; R10.9 Unspecified abdominal pain; Z3A.00 Weeks of gestation of pregnancy not specified
CPT/HCPCS: J0595; J2550

== ENCOUNTER 2019-08-07 17:31 | Day surgery (SDC) | payer OTHER ==
[2019-08-07] MEDS ORDERED: hydrALAZINE 20 MG/ML VIAL SLOW IVP PRN (18:33)
--- NOTE | 2019-08-07 19:00 | ER ---
DATE OF SERVICE: 08/07/2019 TIME OF SERVICE: 1830 hours. PRESENTING COMPLAINTS: Lower abdominal pain at 37-1/2 weeks' gestation, prior section x2. HISTORY OF PRESENT ILLNESS: Ms. Kim is a 24-year-old, 3, para 2, with EDC of 08/23, scheduled repeat on 08/19, who is well known to this Labor and Delivery unit. She has presented several times with complaints of lower abdominal pain throughout her third trimester. She reports that she had lower abdominal pain today at [facility]. Denies rupture of membranes. Denies vaginal bleeding. Reports an active fetus. 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 The patient sees Dr. Shin as [facility] [place]. Blood type O positive. Antibody negative. Pap negative. Rubella immune. VDRL nonreactive. Hepatitis B, GC, Chlamydia negative. has been complicated by mild renal pyelectasis bilaterally with a constitutionally small fetus, reactive testing and serial growth appropriate. PAST SURGICAL HISTORY: C-sections and appendectomy. MEDICAL HISTORY: None. ALLERGIES: DENIES. MEDICATIONS: vitamins. SOCIAL HISTORY: Denies tobacco, alcohol, or IV drug abuse. FAMILY HISTORY: Noncontributory. REVIEW OF SYSTEMS: Noncontributory. PHYSICAL EXAMINATION: GENERAL: White female, in no acute distress. VITAL SIGNS: Blood pressure 108/72, pulse 85, respirations 18, temperature 98.6. LUNGS: Clear to auscultation bilaterally. HEART: Regular rhythm. ABDOMEN: Soft and nontender. She has an umbilical hernia. Fundal height of 35 cm. FHTs 140s. Vulva without lesions. Vagina without discharge. Cervix is closed, long, and high, cephalic, - 2 to 3 station. EXTREMITIES: Without clubbing, cyanosis, or edema. Extended monitoring is consistent with a category 1 heart rate tracing. No significant contractions noted. Baseline is 140s. Positive accelerations, no decelerations. IMPRESSION: Discomforts of . No evidence of labor. Previous x2. 37 to 38 weeks' gestation. PLAN: Reassurance. The patient is to keep scheduled followup with Dr. Shin next week. Job ID: [id number]
== END 2019-08-07 18:45 | disposition home health service (06) ==
LOC: L&D/OP 17:31
PROVIDERS: ATTEND Obstetrics & Gynecology
DX: O26.893 Other specified pregnancy related conditions, third trimester (principal); R10.30 Lower abdominal pain, unspecified; O99.613 Diseases of the digestive system complicating pregnancy, third trimester; K42.9 Umbilical hernia without obstruction or gangrene; O34.219 Maternal care for unspecified type scar from previous cesarean delivery; Z3A.37 37 weeks gestation of pregnancy

== ENCOUNTER 2019-08-10 18:50 | Inpatient (IN) | payer OTHER ==
[2019-08-10 19:25] VITALS: BMI 27.4
[2019-08-10] MEDS ORDERED: hydrALAZINE 20 MG/ML VIAL SLOW IVP PRN (20:16)
[2019-08-10] MEDS ORDERED: Acetaminophen 325 MG TAB PO SCH (20:45)
[2019-08-10 20:55] LABS: Bacteria/HPF None Seen HPF (None Seen); Bilirubin Negative (Negative); Blood, Urine Negative (Negative); Clarity Clear (Clear); Glucose, Urine (Dipstick) Normal (Negative); Leukocyte Negative Leu/uL (Negative); Nitrite Negative (Negative); Protein, Urine (Dipstick) Negative (Neg-Trace); RBC/HPF 0-3 HPF (0-3); Squamous Epithelial 0-3 HPF (0-3); Urobilinogen 3 mg/dL (Less than 2); WBC/HPF 0-3 HPF (0-3)
[2019-08-10 21:03] LABS: ALT (SGPT) 9 U/L (8-55); AST (SGOT) 17 U/L (5-34); Albumin 3.2 g/dL (3.5-5.0); Alkaline Phosphatase 213 U/L (40-110); Anion Gap 12 mmol/L (10-20); BUN (Urea Nitrogen) 10 mg/dL (7.0-18.7); Bilirubin, Total 0.3 mg/dL (0.2-1.2); Calc. Creatinine Clearance 149 mL/min (70-130); Calcium 8.8 mg/dL (7.8-10.44); Carbon Dioxide 20 mmol/L (22-29); Chloride 108 mmol/L (98-107); Estimated GFR-MDRD Greater than 90; Globulin 3.1 g/dL (2.4-3.5); Glucose 86 mg/dL (70-105); Potassium 3.7 mmol/L (3.5-5.1); Protein, Total 6.3 g/dL (6.0-8.3); Sodium 136 mmol/L (136-145)
[2019-08-10 21:15] LABS: #Lymphocytes 1.9 thou/uL (1.20-3.40); #Monocytes 0.5 thou/uL (0.11-0.59); #Neutrophils 6.7 thou/uL (1.40-6.50); %Basophils 0.4 % (0.0-1.0); %Eosinophils 0.4 % (0.0-10.0); %Lymphocytes 20.7 % (21.0-51.0); %Monocytes 5.9 % (0.0-10.0); %Neutrophils 72.7 % (42.0-75.0); Anisocytosis SLIGHT = 6-15 cells (100X) (0-5/hpf); Hemoglobin 8.1 g/dL (12.0-16.0); MDiff Complete? YES; Mean Corpuscular HGB CONC 32.3 g/dL (32.0-36.0); Mean Corpuscular Hemoglobin 23.8 pg (27.0-31.0); Mean Corpuscular Volume 73.5 fL (78.0-98.0); Mean Platelet Volume 9.1 fL (7.4-10.4); Microcytosis SLIGHT = 6-15 cells (100X) (0-5/hpf); Platelet Count 240 thou/uL (130-400); RBC Distribution Width 16.5 % (11.5-14.5); Red Blood Cell (RBC) Count 3.41 mill/uL (4.20-5.40); White Blood Cell (WBC) Count 9.3 thou/uL (4.8-10.8)
[2019-08-11] MEDS ORDERED: Ondansetron PF 4 MG/2 ML Vial IVP PRN ×2 (00:05→03:47)
[2019-08-11] MEDS ORDERED: Promethazine HCl 25 MG/ML VIAL IM PRN ×2 (00:05→03:47)
--- NOTE | 2019-08-11 00:10 | PDOC.LDHP ---
Labor and Delivery H&P Chief complaint: contractions HPI: 24 yo WF here c/o regular UCs since earlier this PM. Denies SROM or bleeding. Current gestational age (weeks): 38 Dating criteria: last menstrual period Grav: 3 Para: 2 OB History Details: PNC with Dr. Conner, h/o anemia and 2 prev. C/S. Had C/S scheduled for 39 weeks. Current complications: none Abnormal US findings: No Current medications: pre-horacio vitamins, iron Previous surgical history: other (C/S x2) Allergies/Adverse Reactions: Allergies Allergy/AdvReac Type Severity Reaction Status Date / Time No Known Allergies Allergy Verified 08/10/19 19:23 Social history: none - Physical Exam Vital signs reviewed and normal: yes General: NAD Heart: RRR Lungs: nonlabored breathing Abdomen: gravid Extremeties: trace edema FHT: category 1 [place] contractions every: UCs q 2- 5mins. - Vaginal Exam cm dilated: 3 Effacement: 75% Station: 0 - Assessment L&D Assessment: term patient in labor - Plan Plan: admit to L&D, informed consent obtained (To OR for repeat C/S. Consent on chart. T&C x 2 units PRBC.)
[2019-08-11] MEDS ORDERED: Lactated Ringer's 1,000 ML IV SCH ×2 (00:15→09:00)
[2019-08-11] MEDS ORDERED: Bicitra 30 ML UDCUP PO SCH (00:15)
[2019-08-11] MEDS ORDERED: CEFAZOLIN 2 GM in Premix Bag 1 BAG IVPB SCH (00:15)
[2019-08-11 01:16] LABS: HBSAg Index 0.14 S/CO (0-0.99); Hep B Surf Ag Non-Reactive S/CO (NonReactive)
[2019-08-11] MEDS ORDERED: Methylergonovine 0.2 MG/ML VIAL ONE (01:39)
[2019-08-11] MEDS ORDERED: Misoprostol 200 MCG TAB ONE ×4 (01:40)
[2019-08-11] MEDS ORDERED: Carboprost 250 MCG/ML AMP ONE (01:40)
[2019-08-11] MEDS: Lactated Ringer's 1,000 ML IV SCH ×8 (01:45→22:41)
[2019-08-11] MEDS ORDERED: MORPHINE 5 MG/10 ML PF VIAL ONE (02:44)
[2019-08-11] MEDS ORDERED: Dexamethasone 4 mg/ml Vial ONE (02:45)
[2019-08-11] MEDS ORDERED: Ketorolac Tromethamine 30 MG/ML VIAL ONE (02:45)
[2019-08-11] MEDS ORDERED: PHENYLEPHRINE-NS 100 MCG/ML 10 ML SYRINGE ONE (02:45)
[2019-08-11] MEDS ORDERED: Oxytocin 10 UNITS/ML VIAL ONE (02:45)
[2019-08-11] MEDS ORDERED: Ondansetron PF 4 MG/2 ML Vial ONE (02:45)
[2019-08-11] MEDS ORDERED: Glycopyrrolate 0.2 MG/ML 5 ML SYRINGE ONE (03:00)
[2019-08-11] MEDS ORDERED: Midazolam HCl 2 mg/2 ml Vial ONE (03:18)
[2019-08-11] MEDS ORDERED: diphenhydrAMINE 50 MG/ML VIAL ONE (03:26)
[2019-08-11] MEDS ORDERED: Naloxone HCl 0.4 mg/ml Vial IVP PRN ×2 (03:47)
[2019-08-11] MEDS ORDERED: Meperidine HCl/PF 25 MG/ML VIAL SLOW IVP PRN (03:47)
[2019-08-11] MEDS ORDERED: diphenhydrAMINE 50 MG/ML VIAL IVP PRN (03:47)
[2019-08-11] MEDS ORDERED: Promethazine HCl 25 MG SUPP PR PRN (03:47)
[2019-08-11] MEDS ORDERED: Naloxone HCl 0.4 mg/ml Vial IV PRN (03:47)
[2019-08-11] MEDS ORDERED: Ondansetron HCl/PF 4 MG/2 ML Vial IVP PRN (03:47)
[2019-08-11] MEDS ORDERED: L&D-Morphine 4 MG/ML VIAL SLOW IVP PRN (03:47)
[2019-08-11] MEDS ORDERED: HYDROmorphone 2 MG/ML VIAL SLOW IVP PRN (03:47)
[2019-08-11] MEDS ORDERED: Communication Order-Pharmacy FS SCH (04:00)
[2019-08-11] MEDS ORDERED: Misoprostol 200 MCG TAB PR SCH (04:30)
[2019-08-11 04:49] LABS: Syphilis Antibody Nonreactive (Nonreactive); Syphilis Antibody Index 0.04 S/CO (<1.00 Non-Reactive)
--- NOTE | 2019-08-11 05:13 | OP ---
DATE OF PROCEDURE: 08/11/2019 PREOPERATIVE DIAGNOSES: 1. Term intrauterine in early labor. 2. Previous section x2. POSTOPERATIVE DIAGNOSES: 1. Term intrauterine in early labor. 2. Previous section x2. 3. Uterine scar separation with uterine window. PROCEDURE: Repeat low segment transverse section via Pfannenstiel incision. DELIVERY TRUCK DRIVER HEAVY SURGEON: Abigail Armas DO, resident physician. ANESTHESIA: Spinal. ESTIMATED BLOOD LOSS: 800 to a 1000 mL, QBL pending FINDINGS: 1. Viable female infant, weight 6 pounds 3 ounces found in the cephalic presentation with Apgars 9 and 9. 2. Normal adnexa bilaterally. 3. Large uterine window seen upon entry into the abdominal cavity. 4. Posterior uterine extension COMPLICATIONS: Posterior uterine extension. PROPHYLAXIS: Ancef 2 g prior to incision. TECHNIQUE IN DETAIL: After good spinal anesthesia was achieved, the patient was prepped and draped in usual sterile fashion in the supine position with leftward tilt. A transverse incision was made through a pre-existing scar. The incision was then carried down into the abdominal cavity. There was dense scarring throughout the layers. Upon entry into the abdominal cavity, the lower uterine segment was evaluated and a large uterine separation with uterine window was seen. A transverse incision was made above the window and the fetus was delivered from the cephalic presentation. The cord was clamped and cut. Cord blood was then obtained. The placenta was manually removed and the inside of the uterus was curetted with a dry lap to remove all remaining placental fragments and detached membrane. The uterus was then closed using a running locking fashion of Monocryl. The lower uterine segment was noted to be extremely thin. Once the uterus was closed, additional bleeding was seen from the posterior aspect of the uterus and it could be seen that there was an extension and this had occurred in the posterior uterus on the right side. Interrupted sutures of chromic were used to obtain complete hemostasis in this area. The bladder was then filled with sterile milk and there was no evidence of extravasation or bladder injury. FloSeal was then placed across the uterine incision as well as the repaired posterior extension. The uterus had been replaced into the abdominal cavity prior to FloSeal and all clots and debris were removed. The fascia was then closed using 2 sutures of PDS. The subcutaneous tissue was irrigated and made dry using Bovie coagulation technique. The skin was closed with metal loraine. Sponge, lap, and needle counts were correct. The patient was transfused 1 unit of packed blood cells during the operation due to the blood loss at that time. Job ID: [id number] MTDD
[2019-08-11] MEDS ORDERED: Meperidine HCl/PF 25 MG/ML VIAL ONE (05:18)
[2019-08-11 05:19] LABS: Hemoglobin 8.1 g/dL (12.0-16.0)
--- NOTE | 2019-08-11 08:57 | PDOC.EVN ---
Event Note - Event Note Event Note: 08/11/19 @ 0857 Called to assess pt for tx to . pod#0for rltcs. [id number]. starting h/ h 8/ s/p 1unit prbc intraopertative. urine output reported only 100 last four hours. vital signs stable and normal. 116/62 P72 most recent.. Will bolus 1ltr LR and watch for response to u/o. repeat cbc already scheduled for 1500. 08/11/19 1200 minimal response after 1L LR bolus. 2nd liter given. uo measured at 75cc over 7hours. vital signs stable. if no response will consider imaging for intraabdominal blood. vitals signs remain stable and normal. Likely will need more prbc/s from blood loss at time of surgery. 1251 25cc after 1hr. 8liters total ivf since admission. 1 unit prbcs. would expect a better response. will CT belly to look for post operative bleeding. 1999 CT scan was neg for any acute process bmp with bun 8/ creatinine 0.6 LASIX 10MG IV GIVEN x1 with minimal response about 400cc output. UO slowing down again, Will keep strict i/o. Pt is up 5 liters. vitals wnl satting 99-100% ra. Will watch and wait at this time. 2199 [facility] hospitalist called for recommendations. Formal consult not requested. AFter discussing pt they have recommend continued fluid resuscitation as long as lungs stay clear.
[2019-08-11] MEDS ORDERED: FLU VACC QS2019-20(6MOS UP)/PF 60 MCG/0.5 ML SYRINGE IM ONE (09:00)
[2019-08-11] MEDS: Methylergonovine 0.2 MG TAB PO SCH ×3 (09:31→17:25)
[2019-08-11] MEDS: Ketorolac Tromethamine 30 MG/ML VIAL IVP SCH ×2 (12:19→19:29)
[2019-08-11] MEDS ORDERED: NS / Oxytocin 40 units/1000ml 1,000 ML IV SCH (14:40)
[2019-08-11] MEDS ORDERED: Misoprostol 200 MCG TAB PR PRN (14:40)
[2019-08-11] MEDS ORDERED: Zolpidem Tartrate 5 MG TAB PO PRN (14:40)
[2019-08-11] MEDS ORDERED: Bisacodyl 10 MG SUPP PR PRN (14:40)
[2019-08-11] MEDS ORDERED: Lanolin Ointment 7 GM TUBE TOP PRN (14:40)
[2019-08-11 14:44] LABS: #Lymphocytes 1.5 thou/uL (1.20-3.40); #Monocytes 0.8 thou/uL (0.11-0.59); #Neutrophils 12.1 thou/uL (1.40-6.50); %Basophils 0.1 % (0.0-1.0); %Eosinophils 0.1 % (0.0-10.0); %Lymphocytes 10.4 % (21.0-51.0); %Monocytes 5.2 % (0.0-10.0); %Neutrophils 84.2 % (42.0-75.0); Hemoglobin 9.9 g/dL (12.0-16.0); Mean Corpuscular HGB CONC 33.2 g/dL (32.0-36.0); Mean Corpuscular Hemoglobin 25.7 pg (27.0-31.0); Mean Corpuscular Volume 77.5 fL (78.0-98.0); Mean Platelet Volume 9.4 fL (7.4-10.4); Platelet Count 203 thou/uL (130-400); RBC Distribution Width 18.1 % (11.5-14.5); Red Blood Cell (RBC) Count 3.83 mill/uL (4.20-5.40); White Blood Cell (WBC) Count 14.4 thou/uL (4.8-10.8)
--- NOTE | 2019-08-11 14:52 | CT ---
CT abdomen and pelvis without IV contrast. Oral contrast was not administered. INDICATIONS: Post earlier today. Blood loss. Unable to urinate. COMPARISON: None FINDINGS: Lung bases are clear Liver, spleen, and pancreas appear unremarkable. Stomach and duodenum appear unremarkable. Adrenal glands appear normal. Kidneys appear unremarkable. Collecting structures and urinary bladder appear unremarkable. Small bowel loops are normal caliber and exhibit normal fold pattern. Appendix not identified. Colon is unremarkable. Aorta is normal caliber. No evidence of retroperitoneal or mesenteric adenopathy. Images through pelvis reveal an enlarged uterus and prominent endometrium consistent with status. There are small amount of free fluid in the pelvis and abdomen. Pockets of intraperitoneal air in the abdomen and pelvis consistent with recent . Venous structures in the right adnexa show increased density. This may reflect venous thrombosis in t he right adnexa. The amount of free fluid in the pelvis does not appear unusual for post status. No evidence of focal hematoma. There is an anterior abdominal wall hernia at the umbilicus. Portions of the transverse colon herniat e through this defect and there is gas in the subcutaneous tissues from this herniated colon. Osseous structures appear unremarkable. IMPRESSION: 1. uterus and endometrium. Free fluid and free air in the abdomen and pelvis consistent wi th recent . No definite hematoma. Venous structures in the right adnexa show increased density. This could reflect venous thrombosis. 2. Anterior abdominal wall hernia at umbilicus. Portion of the transverse colon herniates through thi s defect with colonic gas in the subcutaneous adipose tissue.
[2019-08-11] MEDS ORDERED: Furosemide 20 MG/2 ML VIAL SLOW IVP SCH (15:00)
--- NOTE | 2019-08-11 15:02 | PDOC.EVN ---
Event Note - Event Note Event Note: OB Note Pt has been managed by [facility] thus far this AM. Official read of CT abd/pelvis is pending. UOP still minimal. Hbg 9.9, Cyber Operator pending. Lasix 10 mg IV ordered. Continue to monitor and will update plan based on results. Co mgmt with [facility]. Dr. Valentin. CV: RRR Resp: unlabored Abd: soft, moderate distension with increased tympany, appropriately ttp, dressing c/d/i
[2019-08-11 15:03] LABS: Anion Gap 10 mmol/L (10-20); BUN (Urea Nitrogen) 8 mg/dL (7.0-18.7); Calc. Creatinine Clearance 156 mL/min (70-130); Calcium 8.4 mg/dL (7.8-10.44); Carbon Dioxide 21 mmol/L (22-29); Chloride 105 mmol/L (98-107); Estimated GFR-MDRD Greater than 90; Glucose 72 mg/dL (70-105); Potassium 4.4 mmol/L (3.5-5.1); Sodium 132 mmol/L (136-145)
[2019-08-11] MEDS ORDERED: HYDROcodone/Acetaminophen 5/325 mg Tablet ONE (15:03)
[2019-08-11] MEDS: HYDROcodone/Acetaminophen 5/325 mg Tablet PO PRN ×2 (15:07→22:33)
[2019-08-11] MEDS ORDERED: Furosemide 40 MG/4 ML VIAL SLOW IVP SCH (15:15)
[2019-08-11] MEDS ORDERED: Ibuprofen 800 MG TAB PO SCH (22:00)
[2019-08-11] MEDS: Docusate Calcium (SURFAK) 240 MG CAP PO SCH (22:34)
[2019-08-11] MEDS: Ferrous Sulfate 325 MG TAB PO SCH (22:34)
[2019-08-12] MEDS ORDERED: Sodium Chloride 0.9% 500 ML IV SCH (00:15)
[2019-08-12 00:24] LABS: Hemoglobin 9.6 g/dL (12.0-16.0); Mean Corpuscular HGB CONC 33.3 g/dL (32.0-36.0); Mean Corpuscular Hemoglobin 25.9 pg (27.0-31.0); Mean Corpuscular Volume 77.8 fL (78.0-98.0); Mean Platelet Volume 9.3 fL (7.4-10.4); Platelet Count 201 thou/uL (130-400); RBC Distribution Width 17.9 % (11.5-14.5); Red Blood Cell (RBC) Count 3.69 mill/uL (4.20-5.40); White Blood Cell (WBC) Count 13.6 thou/uL (4.8-10.8)
[2019-08-12] MEDS: Ketorolac Tromethamine 30 MG/ML VIAL IVP SCH ×2 (01:39→07:43)
[2019-08-12] MEDS ORDERED: Ibuprofen 800 MG TAB PO SCH (04:00)
[2019-08-12 05:31] LABS: #Eosinphils 0.2 thou/uL (0.0-0.7); #Lymphocytes 2.3 thou/uL (1.20-3.40); #Monocytes 0.9 thou/uL (0.11-0.59); #Neutrophils 8.3 thou/uL (1.40-6.50); %Basophils 0.3 % (0.0-1.0); %Eosinophils 1.8 % (0.0-10.0); %Lymphocytes 19.9 % (21.0-51.0); %Monocytes 7.3 % (0.0-10.0); %Neutrophils 70.6 % (42.0-75.0); Hemoglobin 8.8 g/dL (12.0-16.0); Mean Corpuscular HGB CONC 33.5 g/dL (32.0-36.0); Mean Corpuscular Hemoglobin 26.1 pg (27.0-31.0); Mean Corpuscular Volume 77.8 fL (78.0-98.0); Mean Platelet Volume 8.8 fL (7.4-10.4); Platelet Count 164 thou/uL (130-400); RBC Distribution Width 18.1 % (11.5-14.5); Red Blood Cell (RBC) Count 3.39 mill/uL (4.20-5.40); White Blood Cell (WBC) Count 11.7 thou/uL (4.8-10.8)
[2019-08-12] MEDS: HYDROcodone/Acetaminophen 5/325 mg Tablet PO PRN ×3 (06:47→20:11)
--- NOTE | 2019-08-12 06:52 | PDOC.PP ---
Post Progress Note Post Day #: 1 Subjective: Minimal lochia. Minimal - moderate pain controlled with oral medications. Denies any dizziness, however, has ambulated minimally. Formula feeding. PO intake tolerated: yes Flatus: yes Ambulation: yes Weight Weight 160 lb - Physical Examination General: NAD Cardiovascular: no m/r/g, RRR Respiratory: clear to auscultation bilaterally, non-labored breathing Abdominal: + bowel sounds, no distention, appropriately TTP Deviation from normal: Dressing c/d/i Fundus firm & at: below umbilicus Extremities: negative homans (B) Neurological: no gross focal deficits Psychiatric: A&Ox3, normal affect Result Diagrams: 08/12/19 05:21 08/11/19 14:33 Additional Labs: Post Labs Blood Type O POSITIVE 08/11/19 00:30 Hep Bs Antigen Non-Reactive S/CO (NonReactive) 08/11/19 00:24 (1) Oligouria Code(s): R34 - ANURIA AND OLIGURIA Status: Acute (2) Anemia Code(s): D64.9 - ANEMIA, UNSPECIFIED Status: Acute (3) delivery delivered Code(s): O82 - ENCOUNTER FOR DELIVERY WITHOUT INDICATION Status: Acute - Assessment/Plan PPD1 VSSAF Pt has had oliguria overnight on several episodes which responded to IVF bolus. Currently UOP 30 cc/hr. Hbg has been stable, this AM slight decrease however, may be related to IVF. CT was wnl, no signs of intra-abdominal bleeding and no concern for urinary obstruction. Minimal lochia. Will transfer to PP floor and continue PP care. If pt becomes oliguric again will consult IM for assistance with mgmt/ additional recommendations. Based on exam and labs do not suspect that she has any current bleeding, ? whether related to ATN from acute EBL? Her engineering lecturer has been wnl.
[2019-08-12] MEDS ORDERED: Lactated Ringer's 1,000 ML IV SCH (06:58)
--- NOTE | 2019-08-12 07:10 | PDOC.EVN ---
Event Note - Event Note Event Note: Dr Figueredo updated on course of events. She will be assuming care as the primary OB physician.
[2019-08-12] MEDS ORDERED: Sodium Chloride 0.9% 1,000 ML IV SCH (07:15)
[2019-08-12] MEDS ORDERED: Ketorolac Tromethamine 30 MG/ML VIAL ONE (07:41)
[2019-08-12] MEDS: Ferrous Sulfate 325 MG TAB PO SCH ×2 (08:42→21:18)
[2019-08-12] MEDS: Docusate Calcium (SURFAK) 240 MG CAP PO SCH ×2 (08:42→21:19)
[2019-08-12] MEDS: Prenatal Vitamin 1 TAB PO SCH (08:42)
--- NOTE | 2019-08-12 14:25 | PDOC.EVN ---
Event Note - Event Note Event Note: Called to evaluate the patient for dull pain from right upper abdomen to right shoulder when she takes a breath. Lungs clear to auscultation, no wheeze, rales , or rhonchi. Abdomen soft, ATTP. Pain possibly referred from gas or air from surgery. Recommend simethicone and continued monitoring.
[2019-08-12] MEDS: Ibuprofen 800 MG TAB PO SCH ×2 (14:30→21:18)
[2019-08-12 14:31] LABS: Bacteria/HPF None Seen HPF (None Seen); Bilirubin Negative (Negative); Blood, Urine Negative (Negative); Clarity Clear (Clear); Glucose, Urine (Dipstick) Normal (Negative); Leukocyte 250 Leu/uL (Negative); Nitrite Negative (Negative); Protein, Urine (Dipstick) 10 mg/dL (Neg-Trace); Squamous Epithelial 0-3 HPF (0-3); Urobilinogen 6 mg/dL (Less than 2)
[2019-08-12 14:36] LABS: Urine Culture Reflex Yes Yes
[2019-08-12 15:03] LABS: #Eosinphils 0.2 thou/uL (0.0-0.7); #Lymphocytes 1.8 thou/uL (1.20-3.40); #Monocytes 0.6 thou/uL (0.11-0.59); #Neutrophils 9.7 thou/uL (1.40-6.50); %Basophils 0.3 % (0.0-1.0); %Eosinophils 1.9 % (0.0-10.0); %Lymphocytes 14.2 % (21.0-51.0); %Monocytes 4.9 % (0.0-10.0); %Neutrophils 78.7 % (42.0-75.0); Hemoglobin 8.9 g/dL (12.0-16.0); Mean Corpuscular HGB CONC 33.1 g/dL (32.0-36.0); Mean Corpuscular Hemoglobin 25.9 pg (27.0-31.0); Mean Corpuscular Volume 78.4 fL (78.0-98.0); Mean Platelet Volume 8.7 fL (7.4-10.4); Platelet Count 227 thou/uL (130-400); RBC Distribution Width 18.4 % (11.5-14.5); Red Blood Cell (RBC) Count 3.42 mill/uL (4.20-5.40); White Blood Cell (WBC) Count 12.4 thou/uL (4.8-10.8)
[2019-08-12 15:24] LABS: Anion Gap 11 mmol/L (10-20); BUN (Urea Nitrogen) 13 mg/dL (7.0-18.7); Calc. Creatinine Clearance 169 mL/min (70-130); Calcium 7.9 mg/dL (7.8-10.44); Carbon Dioxide 19 mmol/L (22-29); Chloride 111 mmol/L (98-107); Estimated GFR-MDRD Greater than 90; Glucose 86 mg/dL (70-105); Potassium 3.7 mmol/L (3.5-5.1); Sodium 137 mmol/L (136-145)
[2019-08-12] MEDS: Simethicone Chewable 80 MG TAB PO PRN (20:10)
[2019-08-13] MEDS: HYDROcodone/Acetaminophen 5/325 mg Tablet PO PRN ×5 (00:22→21:33)
[2019-08-13] MEDS: Ibuprofen 800 MG TAB PO SCH ×3 (05:09→21:34)
[2019-08-13] MEDS: Ferrous Sulfate 325 MG TAB PO SCH ×2 (08:03→21:33)
[2019-08-13] MEDS: Docusate Calcium (SURFAK) 240 MG CAP PO SCH ×3 (08:03→21:36)
[2019-08-13] MEDS: Prenatal Vitamin 1 TAB PO SCH (08:03)
--- NOTE | 2019-08-13 08:38 | PDOC.PP ---
Post Progress Note Post Day #: 2 Subjective: Pt doing much better this morning. She reports mild pain controlled with oral meds. Minimal lochia. Formula feeding. Voiding without difficulty. PO intake tolerated: yes Flatus: yes Ambulation: yes Vital Signs (12 hours) Temp Pulse Resp BP Pulse Ox 08/13/19 05:11 97.9 F 59 L 120/71 08/12/19 23:50 97.7 F 54 L 107/59 L 08/12/19 21:15 97.9 F 68 20 111/57 L 98 08/12/19 21:00 98 Weight Weight 174 lb - Physical Examination General: NAD Cardiovascular: RRR Respiratory: non-labored breathing Abdominal: no distention, appropriately TTP Fundus firm & at: below umbilicus Extremities: negative homans (B) Skin: CS incision dry & intact, no rash Neurological: no gross focal deficits Psychiatric: A&Ox3, normal affect Result Diagrams: 08/12/19 14:55 08/12/19 14:55 Additional Labs: Post Labs Blood Type O POSITIVE 08/11/19 00:30 Hep Bs Antigen Non-Reactive S/CO (NonReactive) 08/11/19 00:24 (1) Oligouria Code(s): R34 - ANURIA AND OLIGURIA Status: Resolved (2) Anemia Code(s): D64.9 - ANEMIA, UNSPECIFIED Status: Acute (3) delivery delivered Code(s): O82 - ENCOUNTER FOR DELIVERY WITHOUT INDICATION Status: Acute - Assessment/Plan PPD2 VSSAF Oliguria has resolved, chaudhari removed and voiding wnl. Anemia stable. Clinically pt doing well. Plan for d/c home today after has renal US.
[2019-08-13] MEDS: Simethicone Chewable 80 MG TAB PO PRN (17:02)
[2019-08-14] MEDS: HYDROcodone/Acetaminophen 5/325 mg Tablet PO PRN ×2 (01:43→08:16)
[2019-08-14] MEDS: Ibuprofen 800 MG TAB PO SCH (05:51)
[2019-08-14 06:24] LABS: #Basophils 0.1 thou/uL (0.0-0.2); #Eosinphils 0.4 thou/uL (0.0-0.7); #Lymphocytes 2.3 thou/uL (1.20-3.40); #Monocytes 0.5 thou/uL (0.11-0.59); #Neutrophils 5.6 thou/uL (1.40-6.50); %Basophils 0.6 % (0.0-1.0); %Eosinophils 4.6 % (0.0-10.0); %Lymphocytes 26.4 % (21.0-51.0); %Monocytes 5.1 % (0.0-10.0); %Neutrophils 63.3 % (42.0-75.0); Hemoglobin 8.7 g/dL (12.0-16.0); Mean Corpuscular HGB CONC 32.2 g/dL (32.0-36.0); Mean Corpuscular Hemoglobin 25.5 pg (27.0-31.0); Mean Corpuscular Volume 79.3 fL (78.0-98.0); Mean Platelet Volume 7.9 fL (7.4-10.4); Platelet Count 238 thou/uL (130-400); RBC Distribution Width 18.4 % (11.5-14.5); White Blood Cell (WBC) Count 8.8 thou/uL (4.8-10.8)
[2019-08-14 06:36] LABS: Anion Gap 9 mmol/L (10-20); BUN (Urea Nitrogen) 12 mg/dL (7.0-18.7); Calc. Creatinine Clearance 170 mL/min (70-130); Calcium 8.3 mg/dL (7.8-10.44); Carbon Dioxide 24 mmol/L (22-29); Chloride 109 mmol/L (98-107); Estimated GFR-MDRD Greater than 90; Glucose 79 mg/dL (70-105); Potassium 3.7 mmol/L (3.5-5.1); Sodium 138 mmol/L (136-145)
[2019-08-14] MEDS: Ferrous Sulfate 325 MG TAB PO SCH (08:15)
[2019-08-14] MEDS: Prenatal Vitamin 1 TAB PO SCH (08:15)
[2019-08-14] MEDS: Docusate Calcium (SURFAK) 240 MG CAP PO SCH (08:15)
--- NOTE | 2019-08-14 08:22 | PDOC.PP ---
Post Progress Note Post Day #: 3 Subjective: Pain controlled. Minimal lochia. No concerns this AM. Formula feeding. Infant had renal US yesterday. FOB is restrained from hospital due to verbal threats. PO intake tolerated: yes Flatus: yes Ambulation: yes Vital Signs (12 hours) Temp Pulse Resp BP Pulse Ox 08/14/19 08:00 98.0 F 74 20 117/73 98 Weight Weight 174 lb 12.8 oz - Physical Examination General: NAD Cardiovascular: RRR Respiratory: non-labored breathing Abdominal: no distention, appropriately TTP Fundus firm & at: below umbilicus Extremities: negative homans (B) Skin: CS incision dry & intact, no rash Neurological: no gross focal deficits Psychiatric: A&Ox3, normal affect Result Diagrams: 08/14/19 06:02 08/14/19 06:02 Additional Labs: Post Labs Blood Type O POSITIVE 08/11/19 00:30 Hep Bs Antigen Non-Reactive S/CO (NonReactive) 08/11/19 00:24 (1) Oligouria Code(s): R34 - ANURIA AND OLIGURIA Status: Resolved (2) Anemia Code(s): D64.9 - ANEMIA, UNSPECIFIED Status: Acute (3) delivery delivered Code(s): O82 - ENCOUNTER FOR DELIVERY WITHOUT INDICATION Status: Acute - Assessment/Plan PPD3 VSSAF Pt stable for d/c home; pt requested hold on d/c yesterday. Fe supplement.
[2019-08-14 11:59] VITALS: BP 120/70; TEMP 98.3
[2019-08-14] MEDS ORDERED: FLU VACC QS2019-20(6MOS UP)/PF 60 MCG/0.5 ML SYRINGE IM ONE (21:00)
--- NOTE | 2019-08-15 06:53 | PQF ---
WERNER ROBERT MD [id number] CLINICAL DOCUMENTATION CLARIFICATION FORM: POST DISCHARGE Addendum to original discharge summary date: ____ Late entry note date: __ DATE: 08-15-2019 ATTN:Smooth Frazier Please exercise your independent, professional judgment in responding to the clarification form. Clinical indicators are provided on the bottom of this form for your review Please check appropriate box(s): [ ] Hypovolemic Shock [ ] Hemorrhagic Shock due to section [ ] Cardiogenic Shock [ ] Shock Unspecified [ x ] Other diagnosis please specify _preop anemia [ ] Unable to determine For continuity of documentation, please document condition throughout progress notes and discharge summary. Thank You. CLINICAL INDICATORS: HP 08/[address] Rodriguez 24 yo WF here c/o regular UCs since earlier this PM HP 08/[address] Rodriguez term patient in labor HP 08/[address] Rodriguez History of anemia OP note 08/[address] Rodriguez Complication: Posterior uterine extension Event note 08/11 [id number] starting h/h 8/25 s/p 1 unit prbc Event note 08/[address] belly to look for post op bleeding Vital sign 08/10 BP 108/60, pulse 81 Vital sign 08/12 BP 119/57, pulse 73 RISK FACTORS: HP Dr. Rodriguez- [address] Rodriguez- 38 weeks AOG OP note 08/[address] Rodriguez Complication: Posterior uterine extension OP note 08/[address] Rodriguez- repeat CS TREATMENT: OP note 08/[address] Rodriguez-Floseal was then placed across the uterine incision as well as the repaired posterior OP note 08/[address] Rodriguez- transfused 1 unit of packed blood cell during operation Event note-1 liter bolus LR (This form is maintained as a part of the permanent medical record) 2014 [employer], [employer]. All Rights Reserved Jacquelyn [email or web address] [not provided] MTDD
--- NOTE | 2019-08-15 06:56 | PQF ---
WERNER ROBERT MD [id number] CLINICAL DOCUMENTATION CLARIFICATION FORM: POST DISCHARGE Addendum to original discharge summary date: ____ Late entry note date: __ DATE: 08-15-2019 ATTN:Smooth Frazier Please exercise your independent, professional judgment in responding to the clarification form. Clinical indicators are provided on the bottom of this form for your review Can you please specify type of anemia based on clinical indicators below. Please check appropriate box(s): [ ] Acute blood loss anemia [ ] Post-op anemia related to acute blood loss [ x ] Other diagnosis please specify_preop anemia [ ] Unable to determine For continuity of documentation, please document condition throughout progress notes and discharge summary. Thank You. CLINICAL INDICATORS: HP 08/[address] Rodriguez 24 yo WF here c/o regular UCs since earlier this PM HP 08/[address] Rodriguez term patient in labor HP 08/[address] Rodriguez History of anemia OP note 08/[address] Rodriguez Complication: Posterior uterine extension Event note 08/11 [id number] starting h/h 06/22 s/p 1 unit prbc Event note 08/[address] belly to look for post op bleeding RISK FACTORS: HP Dr. Rodriguez- [address] Rodriguez- 38 weeks AOG OP note 08/[address] Rodriguez Complication: Posterior uterine extension OP note 08/[address] Rodriguez- repeat CS TREATMENT: OP note 08/[address] Rodriguez-Floseal was then placed across the uterine incision as well as the repaired posterior extension OP note 08/[address] Rodriguez- transfused 1 unit of packed blood cell during operation Event note-1 liter bolus LR (This form is maintained as a part of the permanent medical record) 2014 [employer], [employer]. All Rights Reserved [email or web address] [email or web address] [not provided] MTDD
--- NOTE | 2019-08-15 06:57 | PQF ---
WERNER ROBERT MD [id number] CLINICAL DOCUMENTATION CLARIFICATION FORM: POST DISCHARGE Addendum to original discharge summary date: ____ Late entry note date: __ DATE: 08-15-2019 ATTN:Smooth Frazier Please exercise your independent, professional judgment in responding to the clarification form. Clinical indicators are provided on the bottom of this form for your review Can you please specify if the posterior uterine extension as an intraoperative complication of section. Please check appropriate box(s): [ ] Posterior uterine extension as an intraoperative complication of section [ ] Posterior uterine extension is not an intraoperative complication of section [ x ] Other diagnosis please specify: ___preop anemia [ ] Unable to determine CLINICAL INDICATORS: HP 08/[address] Rodriguez 24 yo WF here c/o regular UCs since earlier this PM HP 08/[address] Rodriguez term patient in labor OP note 08/[address] Rodriguez Uterine scar separation with uterine window OP note 08/[address] Rodriguez Complication: Posterior uterine extension OP note 08/[address] Rodriguez Once the uterus was closed additional bleeding was seen from the posterior aspect of the uterus and it could be seen that there was an extension and this had occurred in the posterior uterus on the right side Event note 08/[address] Drake RISK FACTORS: HP Dr. Rodriguez- [address] Rodriguez- 38 weeks AOG TREATMENT: OP note 08/[address] Rodriguez-Floseal was then placed across the uterine incision as well as the repaired posterior extension OP note 08/[address] Rodriguez- transfused 1 unit of packed blood cell during operation (This form is maintained as a part of the permanent medical record) 2014 [employer]. All Rights Reserved Jacquelyn [email or web address] [not provided] MTDD
== END 2019-08-14 12:45 | disposition home or self-care (01) | DRG 787 ==
LOC: L&D/OP 18:50 → L&D 22:27 → 3SW 08-11 10:06 → L&D 08-11 10:11 → 3SW 08-12 12:07
PROVIDERS: ADMIT Obstetrics & Gynecology; ATTEND Obstetrics & Gynecology
PROC: 10D00Z1 Extraction of Products of Conception, Low, Open Approach (ICD-10-PCS; principal; 2019-08-11)
PROC: 30233N1 Transfusion of Nonautologous Red Blood Cells into Peripheral Vein, Percutaneous Approach (ICD-10-PCS; 2019-08-11)
PROC: 3E02340 Introduction of Influenza Vaccine into Muscle, Percutaneous Approach (ICD-10-PCS; 2019-08-11)
DX: O34.211 Maternal care for low transverse scar from previous cesarean delivery (principal); O26.833 Pregnancy related renal disease, third trimester; R34 Anuria and oliguria; O99.02 Anemia complicating childbirth; D64.9 Anemia, unspecified; O94 Sequelae of complication of pregnancy, childbirth, and the puerperium; Z3A.39 39 weeks gestation of pregnancy; Z37.0 Single live birth; Z23 Encounter for immunization
CPT/HCPCS: 36415; 36430; 51701; 51702; 74176; 80048; 80053; 81001; 81003; 85014; 85018; 85025; 85027; 86780; 86850; 86900; 86901; 87086; 87340; 87480; 87510; 87660; 99285; J0690; J1100; J1200; J1885; J1940; J2175; J2210; J2250; J2274; J2405; J2590; J3490; P9016

== ENCOUNTER 2019-09-05 07:34 | Outpatient (CLI) | payer OTHER ==
[2019-09-05 13:37] LABS: #Basophils 0.1 thou/uL (0.0-0.2); #Eosinphils 0.2 thou/uL (0.0-0.7); #Lymphocytes 2.4 thou/uL (1.20-3.40); #Monocytes 0.5 thou/uL (0.11-0.59); #Neutrophils 3.9 thou/uL (1.40-6.50); %Basophils 0.8 % (0.0-1.0); %Eosinophils 3.1 % (0.0-10.0); %Lymphocytes 33.7 % (21.0-51.0); %Monocytes 7.3 % (0.0-10.0); %Neutrophils 55.1 % (42.0-75.0); Hemoglobin 10.7 g/dL (12.0-16.0); Mean Corpuscular HGB CONC 31.3 g/dL (32.0-36.0); Mean Corpuscular Hemoglobin 25.3 pg (27.0-31.0); Mean Corpuscular Volume 80.9 fL (78.0-98.0); Mean Platelet Volume 7.5 fL (7.4-10.4); Platelet Count 377 thou/uL (130-400); RBC Distribution Width 19.1 % (11.5-14.5); Red Blood Cell (RBC) Count 4.23 mill/uL (4.20-5.40); White Blood Cell (WBC) Count 7.1 thou/uL (4.8-10.8)
[2019-09-05 14:21] LABS: ALT (SGPT) 10 U/L (8-55); AST (SGOT) 15 U/L (5-34); Albumin 4.2 g/dL (3.5-5.0); Alkaline Phosphatase 106 U/L (40-110); Anion Gap 14 mmol/L (10-20); BUN (Urea Nitrogen) 12 mg/dL (7.0-18.7); Bilirubin, Total 0.4 mg/dL (0.2-1.2); Calc. Creatinine Clearance 0 mL/min (70-130); Calcium 9.4 mg/dL (7.8-10.44); Carbon Dioxide 24 mmol/L (22-29); Chloride 109 mmol/L (98-107); Estimated GFR-MDRD 71; Globulin 2.6 g/dL (2.4-3.5); Glucose 81 mg/dL (70-105); Potassium 3.9 mmol/L (3.5-5.1); Protein, Total 6.8 g/dL (6.0-8.3); Sodium 143 mmol/L (136-145)
== END 2019-09-05 07:35 | disposition home or self-care (01) ==
LOC: LABBT 07:34
PROVIDERS: ATTEND Specialist
DX: Z01.812 Encounter for preprocedural laboratory examination (principal); K43.9 Ventral hernia without obstruction or gangrene
CPT/HCPCS: 80053; 85025

== ENCOUNTER 2019-09-10 11:12 | Day surgery (SDC) | payer OTHER ==
[2019-09-05 12:55] VITALS: BMI 22.4
[~2019-09-10 11:12] MED LIST: Dexamethasone 20 MG/5 ML VIAL ONE; Ketorolac Tromethamine 30 MG/ML VIAL ONE; Lidocaine 1% PF 5 ML VIAL ONE; Ondansetron PF 4 MG/2 ML Vial ONE; PROPOFOL 200 MG/20 ML VIAL ONE; Rocuronium Bromide 10 MG/ML (10ML VIAL) ONE
[2019-09-10] MEDS ORDERED: Midazolam HCl 2 mg/2 ml Vial ONE (13:15)
[2019-09-10] MEDS ORDERED: Bupivacaine HCl 0.5%/Epinephrine 1:200,000/PF 30 ml Vial ONE (13:45)
[2019-09-10] MEDS ORDERED: Fentanyl 100 MCG/2 ML VIAL ONE ×3 (14:11→16:19)
[2019-09-10] MEDS ORDERED: Promethazine HCl 25 MG/ML VIAL SLOW IVP PRN (15:00)
[2019-09-10] MEDS ORDERED: Meperidine HCl/PF 25 MG/ML VIAL SLOW IVP PRN (15:00)
[2019-09-10] MEDS ORDERED: Ondansetron HCl/PF 4 MG/2 ML Vial IVP PRN (15:00)
[2019-09-10] MEDS ORDERED: HYDROmorphone 2 MG/ML VIAL SLOW IVP PRN (15:00)
[2019-09-10] MEDS ORDERED: SUGAMMADEX SODIUM 200 MG/2 ML VIAL ONE (15:12)
--- NOTE | 2019-09-10 15:57 | OP ---
DATE OF PROCEDURE: 09/10/2019 PREOPERATIVE DIAGNOSIS: Ventral hernia. POSTOPERATIVE DIAGNOSIS: Ventral hernia. PROCEDURE PERFORMED: Da Julisa laparoscopic ventral hernia repair with mesh, Ventralex ST 8 cm. ANESTHESIA: General. ESTIMATED BLOOD LOSS: Minimal. COMPLICATIONS: None. SPECIMEN: None. DESCRIPTION OF PROCEDURE: The patient was taken to the operating room and laid supine on the operating room table. After general anesthetic was obtained, the abdomen was prepped and draped in a sterile fashion. Left subcostal 5 mm Optiview trocar was placed in usual fashion and high-flow pneumoperitoneum was obtained. Left subcostal 5-mm Optiview trocar was placed in usual fashion without injury and high-flow pneumoperitoneum was obtained. Left and right abdominal subcostal 8 mm robot trocars were placed. All ports were docked to the robot. The subcostal incision had been switched out to an 11-mm balloon trocar. Surgeon goes to the console. The peritoneum was taken down. Preperitoneal fat was dissected out of this ventral hernia in the upper midline. The falciform was taken down slightly. The defect was about 3 cm in diameter. It was closed using running 0 V-Loc suture. 8 cm tribal of Ventralex ST mesh was labeled, passed into the abdominal cavity, pushed up against the posterior abdominal wall to cover the closure. It was sewn via 2-0 V-Loc around the edges of the posterior fascia. The exposed mesh was placed up against the posterior fascia. The nonadherent barrier was placed down against the abdominal viscera. All needles were removed from the abdomen and accounted for. All port sites were infiltrated using local anesthetic. All ports were removed under camera visualization. Pneumoperitoneum was let down. PDS was used to close the fascia from the left subcostal incisions. All incisions were irrigated and closed using 4-0 Monocryl and Dermabond. The patient was sent to Recovery in stable condition. All instrument counts, needle counts, and lap counts were correct. Job ID: [id number]
[2019-09-10] MEDS ORDERED: HYDROcodone/Acetaminophen 5/325 mg Tablet ONE (17:25)
== END 2019-09-10 18:00 | disposition home or self-care (01) ==
LOC: SDC 11:12
PROVIDERS: ATTEND Surgery
PROC: 0WUF4JZ Supplement Abdominal Wall with Synthetic Substitute, Percutaneous Endoscopic Approach (ICD-10-PCS; principal; 2019-09-10)
DX: K43.9 Ventral hernia without obstruction or gangrene (principal)
CPT/HCPCS: C1781; J0131; J0670; J0690; J1100; J1885; J2001; J2250; J2405; J2704; J3010

== ENCOUNTER 2021-04-23 14:32 | Emergency (ER) | payer OTHER ==
[2021-04-23 15:19] LABS: #Basophils 0.1 thou/uL (0.0-0.2); #Eosinphils 0.1 thou/uL (0.0-0.7); #Monocytes 0.5 thou/uL (0.11-0.59); #Neutrophils 5.2 thou/uL (1.40-6.50); %Basophils 0.8 % (0.0-1.0); %Eosinophils 1.9 % (0.0-10.0); %Lymphocytes 25.2 % (21.0-51.0); %Monocytes 6.4 % (0.0-10.0); %Neutrophils 65.6 % (42.0-75.0); Hemoglobin 13.6 g/dL (12.0-16.0); Mean Corpuscular HGB CONC 34.2 g/dL (32.0-36.0); Mean Corpuscular Hemoglobin 31.3 pg (27.0-31.0); Mean Corpuscular Volume 91.6 fL (78.0-98.0); Mean Platelet Volume 7.2 fL (7.4-10.4); Platelet Count 269 thou/uL (130-400); RBC Distribution Width 11.9 % (11.5-14.5); Red Blood Cell (RBC) Count 4.33 mill/uL (4.20-5.40)
[2021-04-23 15:40] LABS: ALT (SGPT) 15 U/L (8-55); AST (SGOT) 18 U/L (5-34); Albumin 4.2 g/dL (3.5-5.0); Alkaline Phosphatase 117 U/L (40-110); BUN (Urea Nitrogen) 12 mg/dL (7.0-18.7); Bilirubin, Total 0.3 mg/dL (0.2-1.2); Calc. Creatinine Clearance 0 mL/min (70-130); Calcium 9.1 mg/dL (7.8-10.44); Globulin 2.6 g/dL (2.4-3.5); Glucose 81 mg/dL (70-105); Lipase 24 U/L (8-78); Protein, Total 6.8 g/dL (6.0-8.3)
[2021-04-23 15:52] LABS: Chloride 110 mmol/L (98-107); Potassium 3.9 mmol/L (3.5-5.1); Sodium 142 mmol/L (136-145)
[2021-04-23 20:15] LABS: Carbon Dioxide Less than 8 mmol/L (22-29)
== END 2021-04-24 22:22 | disposition home or self-care (01) ==
LOC: ERS 14:32
DX: Z53.21 Procedure and treatment not carried out due to patient leaving prior to being seen by health care provider (principal)
CPT/HCPCS: 36415; 80053; 83690; 85025; J0500

== ENCOUNTER 2021-04-24 19:27 | Emergency (ER) | payer OTHER, SELFPAY ==
[2021-04-24 19:51] LABS: Bilirubin Negative (Negative); Blood, Urine Negative (Negative); Glucose, Urine (Dipstick) Negative (Negative); Ketone, Urine Trace mg/dL (Negative); Leukocyte Negative (Negative); Nitrite Negative (Negative); Protein, Urine (Dipstick) Negative (Neg-Trace); Urobilinogen 0.2 mg/dL (Less than 2)
[2021-04-24 19:52] LABS: Clarity Clear (Clear); Specific Gravity, Urine 1.028 (1.002-1.036)
[2021-04-24 19:53] LABS: Pregnancy Test - Urine (BHCG) Negative (Negative); Pregu Control Background? CLEAR/WHITE (CLR/WHITE); Pregu Control Bar Appear? YES (CONTROL BAR); Specific Gravity 1.028 (1.002-1.036)
== END 2021-04-24 22:22 | disposition home or self-care (01) ==
LOC: ERS 19:27
DX: R10.84 Generalized abdominal pain (principal); F17.290 Nicotine dependence, other tobacco product, uncomplicated
CPT/HCPCS: 81003; 81025; 96372; 99284

== ENCOUNTER 2023-12-20 05:31 | Emergency (ER) | payer SELFPAY ==
[2023-12-20] MEDS ORDERED: Acetaminophen 500 MG TAB ONE (06:01)
[2023-12-20] MEDS ORDERED: Ondansetron PF 4 MG/2 ML Vial ONE (06:20)
[2023-12-20] MEDS ORDERED: Ketorolac Tromethamine 30 MG (1 mL) VIAL ONE (06:20)
[2023-12-20 06:25] LABS: Bacteria/HPF 2+ HPF (None Seen); Bilirubin Negative (Negative); Blood, Urine Negative (Negative); CAUTI Indications for Culture Dysuria,urgency,freq; Clarity Turbid (Clear); Glucose, Urine (Dipstick) Normal (Negative); Ketone, Urine 100 mg/dL (Negative); Leukocyte Negative Leu/uL (Negative); Nitrite Negative (Negative); Protein, Urine (Dipstick) 30 mg/dL (Neg-Trace); RBC/HPF 0-3 HPF (0-3); Specific Gravity, Urine 1.026 (1.002-1.036); Squamous Epithelial Greater than 50 HPF (0-3); Urobilinogen Normal mg/dL (Less than 2); WBC/HPF 0-3 HPF (0-3)
[2023-12-20 06:27] LABS: #Monocytes 0.5 thou/uL (0.11-0.59); #Neutrophils 3.6 thou/uL (1.40-6.50); %Basophils 0.9 % (0.0-1.0); %Eosinophils 0.4 % (0.0-10.0); %Lymphocytes 9.9 % (21.0-51.0); %Monocytes 10.1 % (0.0-10.0); %Neutrophils 78.5 % (42.0-75.0); Hematocrit 38.1 % (36.0-47.0); Hemoglobin 12.1 g/dL (12.0-16.0); Mean Corpuscular HGB CONC 31.8 g/dL (32.0-36.0); Mean Corpuscular Hemoglobin 24.6 pg (27.0-31.0); Mean Corpuscular Volume 77.4 fl (78.0-98.0); Platelet Count 258 10x3/uL (130-400); RBC Distribution Width 16.4 % (11.5-14.5); Red Blood Cell (RBC) Count 4.92 mill/uL (4.20-5.40); White Blood Cell (WBC) Count 4.5 10x3/uL (4.8-10.8)
[2023-12-20 06:27] LABS: Urine Culture Reflex No No
[2023-12-20 06:34] LABS: BHCG - Serum Negative (NEGATIVE); Pregs Control Background? CLEAR/WHITE (CLR/WHITE); Pregs Control Bar Appear? YES (CONTROL BAR)
[2023-12-20 06:45] LABS: SARS-CoV-2 NAA Rapid Test Not Detected (NotDetected)
[2023-12-20 06:59] LABS: ALT (SGPT) 16 U/L (8-55); AST (SGOT) 29 U/L (5-34); Albumin 4.2 g/dL (3.5-5.0); Alkaline Phosphatase 131 U/L (40-110); Anion Gap 20 mmol/L (10-20); BUN (Urea Nitrogen) 9 mg/dL (7.0-18.7); Bilirubin, Total 0.4 mg/dL (0.2-1.2); CK (CPK) 55 U/L (29-168); Calc. Creatinine Clearance 0 mL/min (70-130); Calcium 9.8 mg/dL (7.8-10.44); Carbon Dioxide 18 mmol/L (22-29); Chloride 104 mmol/L (98-107); Estimated GFR 113; Globulin 4.3 g/dL (2.4-3.5); Glucose 125 mg/dL (70-105); Potassium 4.7 mmol/L (3.5-5.1); Protein, Total 8.5 g/dL (6.0-8.3); Sodium 137 mmol/L (136-145)
== END 2023-12-20 09:00 | disposition home or self-care (01) ==
LOC: ERS 05:31
DX: J10.1 Influenza due to other identified influenza virus with other respiratory manifestations (principal); L97.919 Non-pressure chronic ulcer of unspecified part of right lower leg with unspecified severity; F17.290 Nicotine dependence, other tobacco product, uncomplicated
CPT/HCPCS: 36415; 80053; 81001; 82550; 84703; 85025; 93005; 96361; 96374; 96375; J1885; J2405